=== PATIENT | female | born 1975 | race Caucasian/White ===

== ENCOUNTER 2019-04-25 20:16 | Emergency (ER) | payer OTHER ==
[2019-04-25 20:30] VITALS: O2SAT 96
[2019-04-25] MEDS ORDERED: Zithromax 250 MG TABLET PO ONE (20:37)
[2019-04-25] MEDS ORDERED: NORCO 5/325 MG PO ONE (20:38)
--- NOTE | 2019-04-25 20:38 | ERPHSYRPT ---
- History of Present Illness Time Seen by Provider: 04/25/19 20:30 Source: patient Exam Limitations: no limitations Patient Subjective Stated Complaint: pt states she has an earache and cold. states her rt ear started hurting about a week ago and she has had drainage from rt ear. had sharp stabbing pain in lt ear starting today. Triage Nursing Assessment: pt alert and oriented, answers questions approp. pt ambulatory with steady gait noted. respirations nonlabored with lungs cta. no drainaged noted from ears. Physician History: 44 y/o white female presents with bilat earaches beginning yesterday. today left earache began. pt feels as though her neck lymph nodes swollen. no cough. denies fever. denies n/v/d. pt cannot take nsaids but can take steroids Timing/Duration: gradual onset, yesterday Severity: moderate ENT Location: ear (R), ear (L) Prearrival Treatment: no prearrival treatment Modifying Factors: Improves With: nothing Associated Symptoms: ear pain (R), ear pain (L), swollen glands (bilat neck) Allergies/Adverse Reactions: ketorolac tromethamine [From Toradol] Adverse Reaction (Mild, Verified 04/25/19 20:30) Nausea NSAIDS (Non-Steroidal Anti-Inflamma Adverse Reaction (Mild, Verified 04/25/19 20 :30) Nausea Home Medications: Pregabalin [Lyrica] 75 mg PO BID 02/18/15 [History] Hx Tetanus, Diphtheria Vaccination/Date Given: Yes Hx Influenza Vaccination/Date Given: Yes Hx Pneumococcal Vaccination/Date Given: Yes Immunizations Up to Date: Yes - Review of Systems Constitutional: No Symptoms Eyes: No Symptoms Ears, Nose, & Throat: Ear Pain (bilat r > l) Respiratory: No Symptoms Cardiac: No Symptoms Abdominal/Gastrointestinal: No Symptoms Genitourinary Symptoms: No Symptoms Musculoskeletal: No Symptoms Skin: No Symptoms Neurological: No Symptoms Psychological: No Symptoms Endocrine: No Symptoms Hematologic/Lymphatic: No Symptoms Immunological/Allergic: No Symptoms All Other Systems: Reviewed and Negative - Past Medical History Pertinent Past Medical History: Yes Neurological History: No Pertinent History ENT History: No Pertinent History Cardiac History: No Pertinent History Respiratory History: Pneumonia Endocrine Medical History: No Pertinent History Musculoskeletal History: No Pertinent History GI Medical History: Ulcer History: No Pertinent History Psycho-Social History: No Pertinent History Female Reproductive Disorders: No Pertinent History - Past Surgical History Past Surgical History: Yes Neuro Surgical History: No Pertinent History Cardiac: No Pertinent History Respiratory: No Pertinent History Gastrointestinal: Hernia Repair Genitourinary: No Pertinent History Musculoskeletal: No Pertinent History Female Surgical History: Tubal Ligation Other Surgical History: lt oopherectomy - Social History Smoking Status: Current every day smoker How long have you smoked: 18 yrs Exposure to second hand smoke: Yes Drug Use: none Patient Lives Alone: No - Female History Hx Last Menstrual Period: 2 weeks Hx Now: No - Nursing Vital Signs Nursing Vital Signs: Initial Vital Signs Temperature 98.6 F 04/25/19 20:22 Pulse Rate 100 H 04/25/19 20:22 Respiratory Rate 20 04/25/19 20:22 Blood Pressure 153/103 04/25/19 20:22 O2 Sat by Pulse Oximetry 96 04/25/19 20:22 Pain Scale Pain Intensity 10 - Physical Exam General Appearance: no apparent distress, alert, anxiety Eye Exam: bilateral eye: normal inspection, PERRL, EOMI Ear Exam: bilateral ear: auricle normal, canal normal, TM red Nasal Exam: normal inspection Throat Exam: normal, pharynx normal, No dental tenderness, No tongue swollen, No uvula swelling, No voice changes Neck Exam: normal inspection, non-tender, supple, full range of motion, trachea midline, No lymphadenopathy (R), No lymphadenopathy (L) Cardiovascular/Respiratory Exam: chest non-tender, normal breath sounds, regular rate/rhythm, heart sounds normal, no respiratory distress Abdominal Exam: non-tender Neurologic Exam: alert, oriented x 3, cooperative, fairing man II-XII nml as tested Skin Exam: normal color, warm, dry SpO2 Interpretation: normal SpO2: 96 O2 Delivery: Room Air Ordered Tests: Medication Summary Generic Name Dose Route Start Last Admin Trade Name Freq PRN Reason Stop Dose Admin Prednisone 20 mg 04/26/19 20:38 04/25/19 20:46 Deltasone 20 Mg PO 04/26/19 20:39 20 mg STAT ONE Administration Discontinued Medications Generic Name Dose Route Start Last Admin Trade Name Freq PRN Reason Stop Dose Admin Hydrocodone Bitart/Acetaminophen 1 tab 04/25/19 20:38 04/25/19 20:47 [place] 5/325 Mg PO 04/25/19 20:39 1 tab STAT ONE Administration Hydrocodone Bitart/Acetaminophen Confirm 04/25/19 20:45 [place] 5/325 Mg Administered 04/25/19 20:46 Dose 1 tab .ROUTE .STK-MED ONE Azithromycin 500 mg 04/25/19 20:37 04/25/19 20:47 Zithromax 250 Mg Tablet PO 04/25/19 20:38 500 mg STAT ONE Administration Azithromycin Confirm 04/25/19 20:45 Zithromax 250 Mg Tablet Administered 04/25/19 20:46 Dose 500 mg .ROUTE .STK-MED ONE Prednisone Confirm 04/25/19 20:45 Deltasone 20 Mg Administered 04/25/19 20:46 Dose 20 mg .ROUTE .STK-MED ONE - Progress Progress: unchanged Counseled pt/family regarding: diagnosis, need for follow-up - Departure Departure Disposition: Home Clinical Impression: Bilateral otitis media Condition: Stable Critical Care Time: No Additional Instructions: drink plenty of fluids. follow up with primary doctor for further management Prescriptions: Hydrocodone/APAP 5/325 [[place] 5/325 mg] 1 each PO Q8H PRN PRN #6 tablet MDD 3 PRN Reason: Pain Azithromycin 250 mg [Zithromax 250 MG TABLET] 250 mg PO DAILY #4 tablet Prednisone 10 mg [Deltasone 10 mg] 10 mg PO BID #6 tablet
[2019-04-25] MEDS ORDERED: NORCO 5/325 MG ONE (20:45)
[2019-04-25] MEDS ORDERED: DELTASONE 20 MG ONE (20:45)
[2019-04-25] MEDS ORDERED: Zithromax 250 MG TABLET ONE (20:45)
[2019-04-25 21:22] VITALS: BP 135/88; PULSE 78
[2019-04-26] MEDS ORDERED: DELTASONE 20 MG PO ONE (20:38)
== END 2019-04-25 21:41 | disposition home or self-care (01) ==
LOC: ED 20:16
DX: H66.93 Otitis media, unspecified, bilateral (principal)
CPT/HCPCS: 99283; A9270-GY

== ENCOUNTER 2019-10-12 17:15 | Observation (INO) | payer MEDICAID, OTHER ==
[2019-10-12] MEDS ORDERED: Pepcid 20 MG VIAL IV ONE ×2 (17:22→17:31)
[2019-10-12] MEDS ORDERED: PROTONIX 40 MG IV IV ONE ×2 (17:22→17:31)
[2019-10-12] MEDS ORDERED: Sodium Chloride 0.9% 1000 ML 1,000 ML IV STA (17:22)
[2019-10-12 17:40] LABS: Absolute Neutrophil Ct (ANC) 15.19 (1.4-6.9); BASOPHIL % 0.1 % (0.0-0.4); Basophil (Absolute #) 0.02 (0-0.4); Eosinophil (Absolute #) 0 (0-0.5); Hematocrit 48.9 % (35-47); Hemoglobin 16.2 gm/dl (12.0-16.0); Lymphocyte (Absolute #) 1.17 (1.0-4.6); Lymphocytes % 6.9 % (24.0-44.0); Mean Cell Volume 87.9 fl (78-100); Mean Corpuscular Hemoglobin 29.1 pg (26-32); Mean Corpuscular Hgb Concent. 33.1 g/dl (32-36); Mean Platelet Volume 9.8 fl (7.5-11.0); Monocyte (Absolute #) 0.69 (0.0-1.3); Platelet Count 380 K/mm3 (150-450); Red Blood Count 5.56 M/mm3 (4.1-5.4); Red Cell Distribution Width 15.7 % (11.5-14.0); White Blood Count 17.1 K/mm3 (4.0-10.5)
--- NOTE | 2019-10-12 17:41 | ERPHSYRPT ---
- History of Present Illness Time Seen by Provider: 10/12/19 17:38 Historian: patient, EMS Exam Limitations: no limitations Patient Subjective Stated Complaint: pt here via ambulance for abd pain to left side,with nasuea and vomiting, since yesterday. was given pain meds and zofran per ems Triage Nursing Assessment: pt alert, arrived per ambulance, resp easy, skin w/d/ p. abd soft, with bs, moves all ext well Physician History: abd pain to left side,with nasuea and vomiting, since yesterday. c/o fever, no chills, Abdominal pain started yesterday. c/o constipation. pain in suprapubic and aide umbilical area Timing/Duration: yesterday Activities at Onset: none Quality: cramping Abdominal Pain Onset Location: periumbilical, suprapubic Pain Radiation: no radiation Severity of Pain-Max: moderate Severity of Pain-Current: moderate Modifying Factors: Improves With: nothing Associated Symptoms: fever/chills, loss of appetite, nausea, vomiting Allergies/Adverse Reactions: ketorolac tromethamine [From Toradol] Adverse Reaction (Mild, Verified 10/12/19 17:27) Nausea NSAIDS (Non-Steroidal Anti-Inflamma Adverse Reaction (Mild, Verified 10/12/19 17 :27) Nausea Home Medications: No Reportable Medications [No Reported Medications] 10/12/19 [History] Hx Tetanus, Diphtheria Vaccination/Date Given: No Hx Influenza Vaccination/Date Given: Yes Hx Pneumococcal Vaccination/Date Given: No Immunizations Up to Date: Yes - Review of Systems Constitutional: Fever, No Chills Eyes: No Symptoms Ears, Nose, & Throat: No Symptoms Respiratory: No Cough, No Dyspnea Cardiac: No Chest Pain, No Edema, No Syncope Abdominal/Gastrointestinal: Abdominal Pain, Nausea, Vomiting, Constipation, Appetite Changes, No Diarrhea Genitourinary Symptoms: No Dysuria Musculoskeletal: No Back Pain, No Neck Pain Skin: No Rash Neurological: No Dizziness, No Focal Weakness, No Sensory Changes Psychological: No Symptoms Endocrine: No Symptoms All Other Systems: Reviewed and Negative - Past Medical History Pertinent Past Medical History: No Neurological History: No Pertinent History ENT History: No Pertinent History Cardiac History: No Pertinent History Respiratory History: Pneumonia Endocrine Medical History: No Pertinent History Musculoskeletal History: No Pertinent History GI Medical History: Ulcer History: No Pertinent History Psycho-Social History: No Pertinent History Female Reproductive Disorders: No Pertinent History - Past Surgical History Past Surgical History: Yes Neuro Surgical History: No Pertinent History Cardiac: No Pertinent History Respiratory: No Pertinent History Gastrointestinal: Hernia Repair Genitourinary: No Pertinent History Musculoskeletal: No Pertinent History Female Surgical History: Other Other Surgical History: right overy removed - Social History Smoking Status: Current every day smoker How long have you smoked: 18 yrs Exposure to second hand smoke: Yes Drug Use: none Patient Lives Alone: No - Female History Hx Last Menstrual Period: 2 weeks ago Hx Now: No - Nursing Vital Signs Nursing Vital Signs: Initial Vital Signs Temperature 97.3 F 10/12/19 17:17 Pulse Rate 81 10/12/19 17:17 Respiratory Rate 18 10/12/19 17:17 Blood Pressure 150/104 10/12/19 17:17 O2 Sat by Pulse Oximetry 95 10/12/19 17:17 Pain Scale Pain Intensity 5 - Physical Exam General Appearance: no apparent distress, alert Eye Exam: PERRL/EOMI, eyes nml inspection Ears, Nose, Throat Exam: normal ENT inspection, pharynx normal, moist mucous membranes Neck Exam: normal inspection, non-tender, supple, full range of motion Respiratory Exam: normal breath sounds, lungs clear, No respiratory distress Cardiovascular Exam: regular rate/rhythm, normal heart sounds Gastrointestinal/Abdomen Exam: tenderness (periumbilical area), No mass Back Exam: normal inspection, normal range of motion, No CVA tenderness, No vertebral tenderness Extremity Exam: normal inspection, normal range of motion, pelvis stable Neurologic Exam: alert, oriented x 3, cooperative, normal mood/affect, nml cerebellar function, sensation nml, No motor deficits Skin Exam: normal color, warm, dry SpO2: 95 - Course Nursing assessment & vital signs reviewed: Yes - CT Exams Abdomen/Pelvis CT Interpretation: Tele-radiologist Report (right umbilical incarcerated hernia with small bowel obstruction) Ordered Tests: Active Orders 24 hr Category Date Time Status ABDOMEN AND PELVIS W/0 CONTRAS [CT] Stat Exams 10/12/19 17:23 Taken AMYLASE Stat Lab 10/12/19 17:37 Completed CBC W DIFF Stat Lab 10/12/19 17:37 Completed CMP Stat Lab 10/12/19 17:37 Completed HCG,QUALITATIVE URINE Stat Lab 10/12/19 Uncollected LIPASE Stat Lab 10/12/19 17:37 Completed Lactic Acid Stat Lab 10/12/19 17:35 Completed UA W/RFX UR CULTURE Stat Lab 10/12/19 17:22 Uncollected Urine Triage Profile Stat Lab 10/12/19 17:23 Uncollected Medication Summary Discontinued Medications Generic Name Dose Route Start Last Admin Trade Name Freq PRN Reason Stop Dose Admin Famotidine 20 mg 10/12/19 17:22 10/12/19 17:35 Pepcid 20 Mg Vial IV 10/12/19 17:23 20 mg STAT ONE Administration Famotidine Confirm 10/12/19 17:31 Pepcid 20 Mg Vial Administered 10/12/19 17:32 Dose 20 mg IV .STK-MED ONE Sodium Chloride 1,000 mls @ 999 mls/hr 10/12/19 17:22 10/12/19 17:47 Sodium Chloride 0.9% 1000 Ml IV 10/12/19 18:22 999 mls/hr .Q1H1M STA Administration Sodium Chloride Confirm 10/12/19 17:47 Sodium Chloride 0.9% 1000 Ml Administered 10/12/19 17:48 Dose 1,000 mls @ ud .ROUTE .STK-MED ONE Ceftriaxone Sodium/Dextrose 1 g in 50 mls @ 100 mls/hr 10/12/19 18:01 18:27 Rocephin 1 Gm-D5w 50 Ml Bag IV 10/12/19 18:30 200 ml/hr STAT STA 200 mls/hr Administration Ceftriaxone Sodium/Dextrose Confirm 10/12/19 18:24 Rocephin 1 Gm-D5w 50 Ml Bag Administered 10/12/19 18:25 Dose 1 g in 50 mls @ ud IV .STK-MED ONE Pantoprazole Sodium 40 mg 10/12/19 17:22 10/12/19 17:35 Protonix 40 Mg Iv IV 10/12/19 17:23 40 mg STAT ONE Administration Pantoprazole Sodium Confirm 10/12/19 17:31 Protonix 40 Mg Iv Administered 10/12/19 17:32 Dose 40 mg IV .STK-MED ONE Lab/Rad Data: Laboratory Result Diagrams 10/12/19 17:37 10/12/19 17:37 Laboratory Results 10/12/19 10/12/19 10/12/19 Range/Units 17:37 17:37 17:35 WBC 17.1 H (4.0-10.5) K/mm3 RBC 5.56 H (4.1-5.4) M/mm3 Hgb 16.2 H (12.0-16.0) gm/dl Hct 48.9 H (35-47) % MCV 87.9 (78-100) fl MCH 29.1 (26-32) pg MCHC 33.1 (32-36) g/dl RDW 15.7 H (11.5-14.0) % Plt Count 380 (150-450) K/mm3 MPV 9.8 (7.5-11.0) fl Gran % 89.0 H (36.0-66.0) % Eos # (Auto) 0 (0-0.5) Absolute Lymphs (auto) 1.17 (1.0-4.6) Absolute Monos (auto) 0.69 (0.0-1.3) Lymphocytes % 6.9 L (24.0-44.0) % Monocytes % 4.0 (0.0-12.0) % Eosinophils % 0.0 (0.00-5.0) % Basophils % 0.1 (0.0-0.4) % Absolute Granulocytes 15.19 H (1.4-6.9) Basophils # 0.02 (0-0.4) Sodium 138 (137-145) mmol/L Potassium 4.2 (3.5-5.1) mmol/L Chloride 103 (98-107) mmol/L Carbon Dioxide 29 (22-30) mmol/L Anion Gap 10.5 (5-15) MEQ/L BUN 10 (7-17) mg/dL Creatinine 0.45 L (0.52-1.04) mg/dL Estimated GFR > 60.0 ML/MIN Glucose 117 H (74-106) mg/dL Lactic Acid 1.6 (0.4-2.0) Calcium 9.5 (8.4-10.2) mg/dL Total Bilirubin 0.30 (0.2-1.3) mg/dL AST 24 (14-36) U/L ALT 15 (0-35) U/L Alkaline Phosphatase 74 (38-126) U/L Serum Total Protein 7.4 (6.3-8.2) g/dL Albumin 4.0 (3.5-5.0) g/dL Amylase 36 (30-110) U/L Lipase 164 (23-300) U/L - Progress Discussed with : Steve Will see patient in: other (to operating room) Counseled pt/family regarding: lab results, diagnosis, need for follow-up, rad results - Departure Departure Disposition: Observation Clinical Impression: Small intestine obstruction, Incarcerated umbilical hernia Condition: Fair Critical Care Time: Yes Critical Care Time(excluding separately billable procedures): Critical 30-74 mins Referrals: DOCTOR,NO FAMILY [Primary Care Provider] - LUIS ALFREDO GALAN [COURTESY STAFF] -
[2019-10-12] MEDS ORDERED: Sodium Chloride 0.9% 1000 ML 0 ML ONE (17:47)
[2019-10-12 17:54] LABS: ALKALINE PHOSPHATASE 74 U/L (38-126); AMYLASE 36 U/L (30-110); ANION GAP 10.5 MEQ/L (5-15); BLOOD UREA NITROGEN 10 mg/dL (7-17); CHLORIDE 103 mmol/L (98-107); Calcium 9.5 mg/dL (8.4-10.2); Carbon Dioxide 29 mmol/L (22-30); Creatinine 1 0.45 mg/dL (0.52-1.04); Glucose 117 mg/dL (74-106); LIPASE 164 U/L (23-300); Potassium 4.2 mmol/L (3.5-5.1); SGOT/AST 24 U/L (14-36); SGPT/ALT 15 U/L (0-35); SODIUM 138 mmol/L (137-145); Total Protein 7.4 g/dL (6.3-8.2)
[2019-10-12] MEDS ORDERED: ROCEPHIN 1 Gm-D5w 50 ml Bag** 1 G/50 ML IVPB IV STA (18:01)
[2019-10-12] MEDS ORDERED: ROCEPHIN 1 Gm-D5w 50 ml Bag** 1 G/50 ML IVPB IV ONE (18:24)
[2019-10-12] MEDS ORDERED: SUBLIMAZE 100 MCG/2 ML IV ONE (18:49)
[2019-10-12] MEDS ORDERED: SUBLIMAZE 100 MCG/2 ML ONE ×3 (18:50→22:03)
[2019-10-12] MEDS ORDERED: Lactated Ringers 2,000 ML IV ONE (19:21)
[2019-10-12] MEDS ORDERED: Sensorcaine 0.25% 10 ML ONE (19:21)
[2019-10-12] MEDS ORDERED: Quelicin Fliptop 200 MG/10 ML ONE (19:26)
[2019-10-12] MEDS ORDERED: Zemuron 100 MG/10 ML ONE ×2 (19:26→21:05)
[2019-10-12] MEDS ORDERED: SUBLIMAZE 250 MCG/5 ML ONE (19:26)
[2019-10-12] MEDS ORDERED: Versed 2 MG/2 ML Injection ONE (19:26)
[2019-10-12] MEDS ORDERED: DIPRIVAN 200 MG/20 ML IV ONE (19:26)
[2019-10-12] MEDS ORDERED: BRIDION 200MG/2ML IV ONE (19:39)
[2019-10-12] MEDS ORDERED: Zofran 4 MG/2 ML VIAL ONE (19:39)
[2019-10-12] MEDS ORDERED: Decadron 4 MG INJ ONE (19:39)
[2019-10-12] MEDS ORDERED: Lactated Ringers 1,000 ML IV ONE (19:46)
[2019-10-12] MEDS ORDERED: CEFAZOLIN 2 GM-D5W BAG** 2 GM/50 ML ML IV ONE (19:51)
[2019-10-12] MEDS ORDERED: Marcaine 0.5%/Epinephrine 10 ML ONE (20:54)
[2019-10-12] MEDS ORDERED: MARCAINE 0.5%-EPI 1:200,000 VL IJ ONE (20:54)
--- NOTE | 2019-10-12 21:18 | XRAY ---
Indication: Abdomen pain, nausea, and vomiting. Multiple contiguous axial images obtained through the abdomen and pelvis without contrast as ordered. Comparison: CT renal stone study October 13, 2011. Lung bases again demonstrates bilateral fibrosis/scarring. No infiltrate or effusion. Heart is not enlarged. New moderate sized hiatal hernia with partial intrathoracic stomach. Noncontrasted stomach unremarkable. New 3 cm right periumbilical ventral hernia defect with herniated knuckle of small bowel appearing mildly fluid distended concerning for incarceration. The more proximal small bowel loops are mildly fluid distended with fluid leveling favoring partial obstruction. Normal distal colonic bowel gas with mild scattered colonic fecal debris and again mild scattered descending/sigmoid diverticulosis. New small abdomen and pelvic ascites. No walled off fluid collection or free air. Remaining liver, gallbladder, pancreas, spleen, adrenal glands, kidneys, ureters, uterus, and aorta appear unremarkable for noncontrast exam. Osseous structures intact. Impression: 1. New right periumbilical ventral hernia with herniated knuckle of small bowel appearing incarcerated. Proximal small bowel loops are abnormally fluid distended with fluid leveling favoring partial obstruction. Small abdomen/pelvic ascites may be related. 2. New hiatal hernia with partial intrathoracic stomach. 3. Again incidental colonic diverticulosis. Comment: Preliminary interpretation was made by [facility] who reports right lower lobe nodule. Appearance is more focal fibrosis and unchanged with respect to June 05, 2011 and favored to be benign.
[2019-10-12] MEDS ORDERED: BREVIBLOC 100 MG/10 ML IV ONE (21:36)
[2019-10-12] MEDS ORDERED: MORPHINE SULFATE 10 MG/ML ONE (22:16)
[2019-10-12] MEDS ORDERED: Zofran 4 MG/2 ML VIAL IV PRN (23:28)
[2019-10-12 23:49] LABS: Appearance SLIGHTLY CLOUDY (CLEAR); Bacteria RARE /HPF (NEGATIVE); Bilirubin NEGATIVE (NEGATIVE); Blood NEGATIVE Ery/ul (0-5); Epithelial Cells RARE /HPF (FEW); Glucose NEGATIVE (NEGATIVE); Ketones TRACE (NEGATIVE); Leukocyte Esterase NEGATIVE (NEGATIVE); Mucus SLIGHT /HPF (NEGATIVE); Nitrite NEGATIVE (NEGATIVE); Protein,Urine Dip 100 (Negative); Specific Gravity 1.041 (1.005-1.025); Urobilinogen NEGATIVE mg/dL (0-1)
[2019-10-12] MEDS: MORPHINE SULFATE 4 MG INJ IV PRN (23:58)
[2019-10-13] MEDS: MORPHINE SULFATE 4 MG INJ IV PRN ×6 (01:05→12:23)
[2019-10-13] MEDS: D5W/0.45NS W/ 20mEq KCl 1000 ML 1,000 ML IV SCH ×3 (01:05→19:29)
[2019-10-13 06:12] LABS: Hematocrit 40.9 % (35-47); Hemoglobin 13.4 gm/dl (12.0-16.0); Mean Cell Volume 89.7 fl (78-100); Mean Corpuscular Hemoglobin 29.4 pg (26-32); Mean Corpuscular Hgb Concent. 32.8 g/dl (32-36); Mean Platelet Volume 10.4 fl (7.5-11.0); Platelet Count 347 K/mm3 (150-450); Red Blood Count 4.56 M/mm3 (4.1-5.4); Red Cell Distribution Width 15.8 % (11.5-14.0); White Blood Count 16.7 K/mm3 (4.0-10.5)
[2019-10-13] MEDS: MORPHINE SULFATE 2 MG INJ IV PRN ×2 (06:27→08:09)
[2019-10-13] MEDS: ENOXAPARIN SODIUM SQ SCH (09:55)
[2019-10-13] MEDS ORDERED: PHARMACY DOSING REQUEST MC ONE (12:58)
[2019-10-13] MEDS ORDERED: DILAUDID 2 MG INJECTION IV STA (14:04)
[2019-10-13] MEDS: DILAUDID 2 MG INJECTION IV PRN ×4 (16:21→22:38)
[2019-10-13] MEDS ORDERED: NORCO 5/325 MG ONE (19:48)
[2019-10-13] MEDS: NORCO 5/325 MG PO PRN (19:55)
[2019-10-14] MEDS: DILAUDID 2 MG INJECTION IV PRN ×11 (00:40→23:31)
[2019-10-14] MEDS: NORCO 5/325 MG PO PRN ×3 (01:41→22:40)
[2019-10-14] MEDS: D5W/0.45NS W/ 20mEq KCl 1000 ML 1,000 ML IV SCH ×3 (03:36→21:30)
[2019-10-14 04:29] LABS: BASOPHIL % 0.2 % (0.0-0.4); Basophil (Absolute #) 0.02 (0-0.4); Eosinophil % 1.1 % (0.00-5.0); Eosinophil (Absolute #) 0.12 (0-0.5); Hematocrit 38.5 % (35-47); Hemoglobin 12.2 gm/dl (12.0-16.0); Lymphocyte (Absolute #) 3.09 (1.0-4.6); Lymphocytes % 27.5 % (24.0-44.0); Mean Cell Volume 91.2 fl (78-100); Mean Corpuscular Hemoglobin 28.9 pg (26-32); Mean Corpuscular Hgb Concent. 31.7 g/dl (32-36); Mean Platelet Volume 9.7 fl (7.5-11.0); Monocyte (Absolute #) 1.21 (0.0-1.3); Monocytes % 10.8 % (0.0-12.0); Neutrophil % 60.4 % (36.0-66.0); Platelet Count 305 K/mm3 (150-450); Red Blood Count 4.22 M/mm3 (4.1-5.4); White Blood Count 11.2 K/mm3 (4.0-10.5)
[2019-10-14] MEDS: ENOXAPARIN SODIUM SQ SCH (09:20)
--- NOTE | 2019-10-14 14:21 | HP ---
HISTORY OF PRESENT ILLNESS: A 44 year-old patient who is overweight. The emergency room physician told me she has not had any surgeries before but apparently she had hernia repair by Dr. Ricketts in the past and also had an ovary removed in the past. Denied any chronic illnesses. She is a smoker. PAST MEDICAL HISTORY: Denied any chronic illnesses. PAST SURGICAL HISTORY: Right ovary removed in the past. MEDICATIONS: None on a regular basis. ALLERGIES: TORADOL, NSAIDS ACCORDING TO PATIENT. FAMILY HISTORY: Negative in regards to this problem. SOCIAL HISTORY: She is a smoker, said she smokes less than a pack per day. No alcohol abuse. LAB DATA AND TESTS: Liver function test and lipase were okay. Lactic acid normal. White count 15, hemoglobin 16.3, PLT 280,000. CT scan showed ventral hernia, loop of bowel stuck in it. They thought it was obstructing hernia. REVIEW OF SYSTEMS: Fourteen systems reviewed per admission assessment. Abdominal pain, nausea, vomiting and constipation for about three days. No chest pain or palpitations other systems negative or noncontributory as above and per preadmission questionnaire. PHYSICAL EXAMINATION: She is afebrile. Blood pressure 150/104, pulse 81. HEENT: Sclerae nonicteric. NECK: No JVD. CHEST: Equal excursion, nonlabored breathing. CVS: Regular rate and rhythm. ABDOMEN: She is overweight. She does have some tenderness periumbilical area. She has incisions upper abdomen from prior hernia repair. She has a lower midline incision from past oophorectomy, according to the patient. EXTREMITIES: No cyanosis. NEURO: Alert, moving extremities symmetrically. IMPRESSION: Incarcerated hernia with small bowel obstruction needs repair, this is an emergent situation, will proceed with open fashion. Risk and benefits were explained in detail but not limited to, including the fact she would have incision. Risk of bleeding and/or infection. Risk of hematoma or seroma formation. Risk of mesh infection possibly requiring removal. Risk of adhesion or scar formation, or obstruction down the road. Possibility if the bowel appears to be nonviable may require resection, reanastomosis accomplished. Risk of anastomotic complications, stenosis, fistula formation or abscess possibly requiring other procedure, ongoing morbidity. Risk of anesthesia, deep venous thrombosis, pulmonary embolism, pneumonia. Risk of cardiopulmonary event given her smoking as well as risk of anesthesia as well as hernia recurrence but not limited to. She understands depending on what we find and whether we need to resect the bowel will admit her to the hospital. If no need for bowel resection then likely will needing pain control. She is agreeable, will proceed with repair of incarcerated ventral hernia possible mesh with possible bowel resection.
--- NOTE | 2019-10-14 14:45 | OP ---
SURGERY DATE/TIME: 10/12/20192003 PREOPERATIVE DIAGNOSIS: Incarcerated recurrent ventral hernia with small bowel obstruction. POSTOPERATIVE DIAGNOSIS: Incarcerated recurrent ventral hernia with small bowel obstruction. PROCEDURE: Repair of recurrent incarcerated ventral hernia with mesh with release of small bowel obstruction. SURGEON: Dr. Hakeem Ochoa. ANESTHESIA: General. ESTIMATED BLOOD LOSS: Minimal. INDICATIONS: As noted above. Risks and benefits explained in detail and not limited to and consent obtained. DESCRIPTION OF PROCEDURE AND FINDINGS: After waiting some time for the patient to get to the OR, general anesthesia induced. Abdomen prepped and draped in usual sterile fashion. After official time out and no disagreement with planned procedure, a midline incision made from supraumbilical extending to infraumbilical area. Dissection carried down through the patient's old incisional area down to the level of the hernia. Hernia sac was opened. The fascial bridge released. Incarcerated small bowel obstruction had been released with releasing adhesions. Small bowel itself appeared to be viable. It did not seem a need for small bowel resection at this time. The bowel carefully inspected. It had a lot of gas and fluid in it. Serous ascites carefully suctioned out. Some omental adhesions were carefully lysed allowing the rectus fascia to be freed circumferentially around. Once this accomplished I felt the patient would benefit from mesh repair. Gloves were changed. Good hemostasis noted. Size [address] mesh was used to secure 1 cm apart around the edges tension-free with 0 Prolene. Once this was accomplished the fascia was closed over the top of the mesh. There is second layer repair with running looped 0 PDS. Subcu irrigated out. Given the large amount of adipose tissue, temporary MARTIN placed subcu out through inferior stab wound, secured with PDS suture and placed to bulb suction. The patient had secondary unrelated umbilical area hernia that was reduced and repair in a day or two. It was unrelated to the incarcerated bowel obstructed hernia. Subcu closed with 3-0 Vicryl. Skin closed with 4-0 Vicryl. Steri-Strips and sterile dressing applied. Anesthesia planned tap blocks. There were no immediate complications. I will see if there is family available to discuss the findings with otherwise she is to stay for pain control. Consult her medical doctor for medical management as needed.
[2019-10-15] MEDS: DILAUDID 2 MG INJECTION IV PRN ×9 (01:32→22:36)
[2019-10-15] MEDS: D5W/0.45NS W/ 20mEq KCl 1000 ML 1,000 ML IV SCH ×3 (05:32→21:54)
[2019-10-15] MEDS: ENOXAPARIN SODIUM SQ SCH (08:59)
[2019-10-15] MEDS ORDERED: HUMULIN R SQ PRN (15:48)
[2019-10-15] MEDS ORDERED: HUMALOG SQ PRN (15:48)
[2019-10-16] MEDS: DILAUDID 2 MG INJECTION IV PRN ×4 (00:36→12:20)
[2019-10-16] MEDS: NORCO 5/325 MG PO PRN ×2 (03:37→14:28)
[2019-10-16] MEDS: D5W/0.45NS W/ 20mEq KCl 1000 ML 1,000 ML IV SCH (06:52)
[2019-10-16] MEDS: ENOXAPARIN SODIUM SQ SCH (09:02)
[2019-10-16 12:33] VITALS: BP 156/88; PULSE 87; O2SAT 99
== END 2019-10-16 17:35 | disposition home or self-care (01) ==
LOC: ED 17:15 → MED SURG 23:01
PROVIDERS: ADMIT Surgery; ATTEND Surgery
DX: K43.0 Incisional hernia with obstruction, without gangrene (principal); K56.609 Unspecified intestinal obstruction, unspecified as to partial versus complete obstruction; K56.50 Intestinal adhesions [bands], unspecified as to partial versus complete obstruction
CPT/HCPCS: 36415; 44005; 49566; 49568; 64488; 74176; 76937; 76942; 80053; 81001; 82150; 83605; 83690; 85025; 85027; 87086; 93268; 94760; 94762; 96360; 96365; 96374; 96375; 99291; G0378; 99140; 99284; J0330; J0690; J0696; J1100; J1170; J1650; J2250; J2270; J2405; J2704; J3010; L0625; A9270-GY

== ENCOUNTER 2020-10-14 10:51 | Inpatient (IN) | payer MEDICAID, OTHER ==
[2020-10-14] MEDS ORDERED: Hydromorphone 1 mg/ml Injection IV ONE ×2 (11:03→13:01)
[2020-10-14] MEDS ORDERED: PROTONIX 40 MG IV IV ONE ×2 (11:03→11:08)
[2020-10-14] MEDS ORDERED: Zofran 4 MG/2 ML VIAL IV ONE ×2 (11:03→12:55)
[2020-10-14] MEDS ORDERED: Sodium Chloride 0.9% 1000 ML 1,000 ML IV STA ×2 (11:03→12:16)
--- NOTE | 2020-10-14 11:03 | ERPHSYRPT ---
- History of Present Illness Time Seen by Provider: 10/14/20 11:03 Historian: patient, EMS Exam Limitations: no limitations Patient Subjective Stated Complaint: pt here for abd pain with nasuea and vomiing since monday,states feels like cramping, pt has hx of bowel obstruction a year ago Triage Nursing Assessment: pt alert, arrrived per ambulance, resp easy, skin w/d/p.abd tendert to touh, no edema noted Physician History: This is a 45-year-old white female who has had abdominal surgeries in the past for repairs umbilical hernia and one surgery in the past for small bowel obstruction. Patient states that she is having abdominal distention with abdominal pain and several episodes of vomiting that have been present for 2 days. She is not passing flatus. She has generalized abdominal cramping. She began not feeling well on Monday prior to this evaluation but did not start vomiting until Monday prior to this evaluation. Patient denies chest pain and she denies shortness of breath. Patient states that her general surgeon was Dr. Kay Timing/Duration: day(s) (2) Activities at Onset: none Quality: aching, cramping Abdominal Pain Onset Location: generalized abdomen Pain Radiation: no radiation Severity of Pain-Max: moderate Severity of Pain-Current: moderate Modifying Factors: Improves With: vomiting Associated Symptoms: vomiting Previous symptoms: same symptoms as today Allergies/Adverse Reactions: tramadol [From Ultram] Allergy (Intermediate, Verified 10/14/20 11:00) Hives Vomiting ketorolac tromethamine [From Toradol] Adverse Reaction (Mild, Verified 10/14/20 11:00) Nausea NSAIDS (Non-Steroidal Anti-Inflamma Adverse Reaction (Mild, Verified 10/14/20 11:00) Nausea Home Medications: No Reportable Medications [No Reported Medications] 10/12/19 [History] Hx Tetanus, Diphtheria Vaccination/Date Given: No Hx Influenza Vaccination/Date Given: No Hx Pneumococcal Vaccination/Date Given: No Immunizations Up to Date: Yes Travel Risk - International Travel Have you traveled outside of the country in past 3 weeks: No - Coronavirus Screening Are you exhibiting any of the following symptoms?: No Symptoms: Vomiting/Diarrhea Close contact with a COVID-19 positive Pt in past 14-21 Days: No - Review of Systems Constitutional: No Symptoms Eyes: No Symptoms Ears, Nose, & Throat: No Symptoms Respiratory: No Symptoms Cardiac: No Symptoms Abdominal/Gastrointestinal: Abdominal Pain, Nausea, Vomiting, No Diarrhea Genitourinary Symptoms: No Symptoms Musculoskeletal: No Symptoms Skin: No Symptoms Neurological: No Symptoms Psychological: No Symptoms Endocrine: No Symptoms Hematologic/Lymphatic: No Symptoms Immunological/Allergic: No Symptoms All Other Systems: Reviewed and Negative - Past Medical History Pertinent Past Medical History: No Neurological History: No Pertinent History ENT History: No Pertinent History Cardiac History: No Pertinent History Respiratory History: Pneumonia Endocrine Medical History: No Pertinent History Musculoskeletal History: Fibromyalgia GI Medical History: Ulcer History: No Pertinent History Psycho-Social History: No Pertinent History Female Reproductive Disorders: No Pertinent History Other Medical History: hx of bowel obs - Past Surgical History Past Surgical History: Yes Neuro Surgical History: No Pertinent History Cardiac: No Pertinent History Respiratory: No Pertinent History Gastrointestinal: Hernia Repair Genitourinary: No Pertinent History Musculoskeletal: No Pertinent History Female Surgical History: Tubal Ligation, Other Other Surgical History: left ovary and tube removed - Social History Smoking Status: Former smoker How long have you smoked: 30 years Exposure to second hand smoke: Yes Drug Use: none Patient Lives Alone: No - Female History Hx Last Menstrual Period: now Hx Now: No - Nursing Vital Signs Nursing Vital Signs: Initial Vital Signs Pulse Rate 97 H 10/14/20 10:52 Respiratory Rate 22 10/14/20 10:52 Blood Pressure 166/65 10/14/20 10:52 O2 Sat by Pulse Oximetry 97 10/14/20 10:52 Pain Scale Pain Intensity 7 - Physical Exam General Appearance: mild distress, alert, anxiety Eye Exam: PERRL/EOMI, eyes nml inspection Ears, Nose, Throat Exam: normal ENT inspection, moist mucous membranes Neck Exam: normal inspection, non-tender, supple, full range of motion Respiratory Exam: normal breath sounds, lungs clear, airway intact, No chest tenderness, No respiratory distress Cardiovascular Exam: regular rate/rhythm, normal heart sounds, normal peripheral pulses Gastrointestinal/Abdomen Exam: soft, normal bowel sounds, tenderness, distention, guarding Pelvic Exam: not done Rectal Exam: not done Back Exam: normal inspection, normal range of motion, No CVA tenderness, No vertebral tenderness Extremity Exam: normal inspection, normal range of motion, pelvis stable Neurologic Exam: alert, oriented x 3, cooperative, 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 as tested, normal mood/affect, nml cerebellar function, nml station & gait, sensation nml Skin Exam: normal color, warm, dry Lymphatic Exam: No adenopathy SpO2 Interpretation: normal SpO2: 97 O2 Delivery: Room Air - Course Nursing assessment & vital signs reviewed: Yes Ordered Tests: Active Orders 24 hr Category Date Time Status IV Insertion STAT Care 10/14/20 11:03 Active ABDOMEN AND PELVIS W/0 CONTRAS [CT] Stat Exams 10/14/20 11:04 Completed AMYLASE Stat Lab 10/14/20 11:03 Completed CBC W DIFF Stat Lab 10/14/20 11:03 Completed CMP Stat Lab 10/14/20 11:03 Completed CULTURE,URINE Stat Lab 10/14/20 12:03 Received LIPASE Stat Lab 10/14/20 11:03 Completed Lactic Acid Stat Lab 10/14/20 11:03 Completed Manual Differential NC Stat Lab 10/14/20 11:03 Completed UA W/RFX UR CULTURE Stat Lab 10/14/20 12:03 Completed Transfer Order Routine Transfer 10/14/20 Ordered Medication Summary Generic Name Dose Route Start Last Admin Trade Name Freq PRN Reason Stop Dose Admin Sodium Chloride 1,000 mls @ 999 mls/hr 10/14/20 12:16 10/14/20 12:19 Sodium Chloride 0.9% 1000 Ml IV 10/14/20 13:16 999 mls/hr .Q1H1M STA Administration Discontinued Medications Generic Name Dose Route Start Last Admin Trade Name Freq PRN Reason Stop Dose Admin Hydromorphone HCl 1 mg 10/14/20 11:03 10/14/20 11:07 Hydromorphone 1 Mg/Ml Injection IV 10/14/20 11:04 1 mg STAT ONE Administration Hydromorphone HCl Confirm 10/14/20 11:04 Hydromorphone 1 Mg/Ml Injection Administered 10/14/20 11:05 Dose 1 mg .ROUTE .STK-MED ONE Hydromorphone HCl 1 mg 10/14/20 13:01 Hydromorphone 1 Mg/Ml Injection IV 10/14/20 13:02 STAT ONE Sodium Chloride 1,000 mls @ 999 mls/hr 10/14/20 11:03 10/14/20 12:11 Sodium Chloride 0.9% 1000 Ml IV 10/14/20 12:03 Infused .Q1H1M STA Infusion Sodium Chloride Confirm 10/14/20 11:04 Sodium Chloride 0.9% 1000 Ml Administered 10/14/20 11:05 Dose 1,000 mls @ ud .ROUTE .STK-MED ONE Sodium Chloride Confirm 10/14/20 12:18 Sodium Chloride 0.9% 1000 Ml Administered 10/14/20 12:19 Dose 1,000 mls @ ud .ROUTE .STK-MED ONE Ondansetron HCl 4 mg 10/14/20 11:03 10/14/20 11:07 Zofran 4 Mg/2 Ml Vial IV 10/14/20 11:04 4 mg STAT ONE Administration Ondansetron HCl Confirm 10/14/20 11:04 Zofran 4 Mg/2 Ml Vial Administered 10/14/20 11:05 Dose 4 mg .ROUTE .STK-MED ONE Ondansetron HCl 4 mg 10/14/20 12:55 10/14/20 12:59 Zofran 4 Mg/2 Ml Vial IV 10/14/20 12:56 4 mg STAT ONE Administration Ondansetron HCl Confirm 10/14/20 12:58 Zofran 4 Mg/2 Ml Vial Administered 10/14/20 12:59 Dose 4 mg .ROUTE .STK-MED ONE Pantoprazole Sodium 40 mg 10/14/20 11:03 10/14/20 11:09 Protonix 40 Mg Iv IV 10/14/20 11:04 40 mg STAT ONE Administration Pantoprazole Sodium Confirm 10/14/20 11:08 Protonix 40 Mg Iv Administered 10/14/20 11:09 Dose 40 mg IV .STK-MED ONE Lab/Rad Data: Laboratory Result Diagrams 10/14/20 11:03 10/14/20 11:03 Laboratory Results 10/14/20 10/14/20 10/14/20 Range/Units 12:03 11:03 11:03 WBC (4.0-10.5) K/mm3 RBC (4.1-5.4) M/mm3 Hgb (12.0-16.0) gm/dl Hct (35-47) % MCV (78-100) fl MCH (26-32) pg MCHC (32-36) g/dl RDW (11.5-14.0) % Plt Count (150-450) K/mm3 MPV (7.5-11.0) fl Sodium 136 L (137-145) mmol/L Potassium 3.4 L (3.5-5.1) mmol/L Chloride 95 L (98-107) mmol/L Carbon Dioxide 30 (22-30) mmol/L Anion Gap 13.3 (5-15) MEQ/L BUN 10 (7-17) mg/dL Creatinine 0.59 (0.52-1.04) mg/dL Estimated GFR > 60.0 ML/MIN Glucose 128 H (74-106) mg/dL Lactic Acid 2.4 H (0.4-2.0) Calcium 9.4 (8.4-10.2) mg/dL Total Bilirubin 0.40 (0.2-1.3) mg/dL AST 34 (14-36) U/L ALT 17 (0-35) U/L Alkaline Phosphatase 73 (38-126) U/L Serum Total Protein 7.6 (6.3-8.2) g/dL Albumin 4.3 (3.5-5.0) g/dL Amylase 44 (30-110) U/L Lipase 82 (23-300) U/L Urine Color MANDI (YELLOW) Urine Appearance CLOUDY (CLEAR) Urine pH 9.0 (5-6) Ur Specific [place] 1.026 (1.005-1.025) Urine Protein >=500 (Negative) Urine Ketones NEGATIVE (NEGATIVE) Urine Blood MODERATE (0-5) Pasquale/ul Urine Nitrite NEGATIVE (NEGATIVE) Urine Bilirubin NEGATIVE (NEGATIVE) Urine Urobilinogen NEGATIVE (0-1) mg/dL Ur Leukocyte Esterase NEGATIVE (NEGATIVE) Urine WBC (Auto) 6-10 (0-5) /HPF Urine RBC (Auto) >101 (0-2) /HPF U Epithel Cells (Auto) RARE (FEW) /HPF Urine Bacteria (Auto) NONE (NEGATIVE) /HPF Urine Mucus (Auto) SLIGHT (NEGATIVE) /HPF Urine Culture Reflexed YES (NO) Urine Glucose NEGATIVE (NEGATIVE) mg/dL 10/14/20 Range/Units 11:03 WBC 13.7 H (4.0-10.5) K/mm3 RBC 5.58 H (4.1-5.4) M/mm3 Hgb 16.4 H (12.0-16.0) gm/dl Hct 49.5 H (35-47) % MCV 88.7 (78-100) fl MCH 29.4 (26-32) pg MCHC 33.1 (32-36) g/dl RDW 15.1 H (11.5-14.0) % Plt Count 356 (150-450) K/mm3 MPV 10.0 (7.5-11.0) fl Sodium (137-145) mmol/L Potassium (3.5-5.1) mmol/L Chloride (98-107) mmol/L Carbon Dioxide (22-30) mmol/L Anion Gap (5-15) MEQ/L BUN (7-17) mg/dL Creatinine (0.52-1.04) mg/dL Estimated GFR ML/MIN Glucose (74-106) mg/dL Lactic Acid (0.4-2.0) Calcium (8.4-10.2) mg/dL Total Bilirubin (0.2-1.3) mg/dL AST (14-36) U/L ALT (0-35) U/L Alkaline Phosphatase (38-126) U/L Serum Total Protein (6.3-8.2) g/dL Albumin (3.5-5.0) g/dL Amylase (30-110) U/L Lipase (23-300) U/L Urine Color (YELLOW) Urine Appearance (CLEAR) Urine pH (5-6) Ur Specific [place] (1.005-1.025) Urine Protein (Negative) Urine Ketones (NEGATIVE) Urine Blood (0-5) Pasquale/ul Urine Nitrite (NEGATIVE) Urine Bilirubin (NEGATIVE) Urine Urobilinogen (0-1) mg/dL Ur Leukocyte Esterase (NEGATIVE) Urine WBC (Auto) (0-5) /HPF Urine RBC (Auto) (0-2) /HPF U Epithel Cells (Auto) (FEW) /HPF Urine Bacteria (Auto) (NEGATIVE) /HPF Urine Mucus (Auto) (NEGATIVE) /HPF Urine Culture Reflexed (NO) Urine Glucose (NEGATIVE) mg/dL - Progress Progress: improved, pain not gone completely, re-examined Progress Note: 10/14/20 12:[address] scan of the abdomen and pelvis shows no evidence of any small bowel obstruction. There are chronic changes present. No other acute intra- abdominal or intrapelvic processes. 10/14/20 12:58 Medical decision making: This patient likely has at least ileus and possible small bowel obstruction. Even though the noncontrasted CAT scan of the abdomen and pelvis shows no acute evidence of small bowel obstruction, likely the small bowel is decompressed because of the multiple episodes of vomiting and lack of oral intake. Patient is still nauseated and still has some abdominal distention. We will admit her into the hospital. I spoke with Dr. White her primary care doctor and he agrees to admit her. We will give her pain medicine, antiemetics and intravenous fluids and will recheck labs in the morning. Likely, her admitting doctor will obtain a surgical consultation if she does not open up her bowels. Discussed with : Devin Counseled pt/family regarding: lab results, diagnosis, need for follow-up, rad results - Departure Departure Disposition: In-patient Admission Clinical Impression: Small bowel obstruction Condition: Stable Critical Care Time: No Referrals: KRISTI WHITE MD [Primary Care Provider] -
[2020-10-14] MEDS ORDERED: Sodium Chloride 0.9% 1000 ML 1,000 ML ONE ×2 (11:04→12:18)
[2020-10-14] MEDS ORDERED: Hydromorphone 1 mg/ml Injection ONE ×2 (11:04→13:06)
[2020-10-14] MEDS ORDERED: Zofran 4 MG/2 ML VIAL ONE ×2 (11:04→12:58)
[2020-10-14 11:38] LABS: Hematocrit 49.5 % (35-47); Hemoglobin 16.4 gm/dl (12.0-16.0); Mean Cell Volume 88.7 fl (78-100); Mean Corpuscular Hemoglobin 29.4 pg (26-32); Mean Corpuscular Hgb Concent. 33.1 g/dl (32-36); Platelet Count 356 K/mm3 (150-450); Red Blood Count 5.58 M/mm3 (4.1-5.4); Red Cell Distribution Width 15.1 % (11.5-14.0); White Blood Count 13.7 K/mm3 (4.0-10.5)
[2020-10-14 11:47] LABS: ALBUMIN 4.3 g/dL (3.5-5.0); ALKALINE PHOSPHATASE 73 U/L (38-126); AMYLASE 44 U/L (30-110); ANION GAP 13.3 MEQ/L (5-15); BLOOD UREA NITROGEN 10 mg/dL (7-17); CHLORIDE 95 mmol/L (98-107); Calcium 9.4 mg/dL (8.4-10.2); Carbon Dioxide 30 mmol/L (22-30); Creatinine 1 0.59 mg/dL (0.52-1.04); EST GLOMERULAR FILTRATION RATE > 60.0 ML/MIN; Glucose 128 mg/dL (74-106); LIPASE 82 U/L (23-300); Potassium 3.4 mmol/L (3.5-5.1); SGOT/AST 34 U/L (14-36); SGPT/ALT 17 U/L (0-35); SODIUM 136 mmol/L (137-145); Total Protein 7.6 g/dL (6.3-8.2)
--- NOTE | 2020-10-14 11:59 | XRAY ---
Indication: Abdomen pain, nausea, and vomiting. Multiple contiguous images obtained through the abdomen and pelvis without contrast. Comparison: October 12, 2019. Lung bases again demonstrates bilateral scattered fibrosis/scarring with tiny cystic changes. No infiltrate or effusion. Heart is not enlarged. Small hiatal hernia smaller than before. Noncontrasted stomach and bowel loops are nonobstructed. Normal appendix. There remains scattered colonic diverticulosis. No free fluid/air. Remaining liver, gallbladder, pancreas, spleen, adrenal glands, kidneys, ureters, bladder, uterus, and aorta appear unremarkable for noncontrast exam. Osseous structures intact. Previous periumbilical ventral hernia has been repaired. No new ventral or inguinal hernias. Impression: 1. Again incidental chronic lung findings, small hiatal hernia, and colonic diverticulosis. 2. Remaining CT abdomen/pelvis without contrast exam is negative.
[2020-10-14 12:15] LABS: Appearance CLOUDY (CLEAR); Bilirubin NEGATIVE (NEGATIVE); Blood MODERATE Ery/ul (0-5); Epithelial Cells RARE /HPF (FEW); Glucose NEGATIVE (NEGATIVE); Ketones NEGATIVE (NEGATIVE); Leukocyte Esterase NEGATIVE (NEGATIVE); Mucus SLIGHT /HPF (NEGATIVE); Nitrite NEGATIVE (NEGATIVE); Protein,Urine Dip >=500 (Negative); RBC >101 /HPF (0-2); Specific Gravity 1.026 (1.005-1.025); Urobilinogen NEGATIVE mg/dL (0-1)
[2020-10-14 14:12] LABS: Lymphocytes 22 % (24-44); Neutrophils 78 % (36.0-66.0); Platelet Estimate NORMAL (NORMAL); Total Cells Counted 100
[2020-10-14 14:24] LABS: INFLUENZA A NEGATIVE (NEGATIVE); INFLUENZA B NEGATIVE (NEGATIVE); RESPIRATORY SYNCTIAL VIRUS NEGATIVE (Negative)
[2020-10-14] MEDS ORDERED: FEVERALL 650 MG PR PRN (14:45)
[2020-10-14] MEDS ORDERED: Zofran 4 MG/2 ML VIAL IV PRN (14:45)
[2020-10-14] MEDS: Sodium Chloride 0.9% 1000 ML 1,000 ML IV SCH (15:38)
[2020-10-14] MEDS: Hydromorphone 1 mg/ml Injection IV PRN ×2 (17:10→21:25)
--- NOTE | 2020-10-14 18:56 | PCM.HP ---
History of Present Illness - Chief Complaint Chief Complaint: abdominal pain for 1 day History of Present Illness: is a 45 year old female.who has had abdominal surgeries in the past for repairs umbilical hernia and one surgery in the past for small bowel obstruction. Patient states that she is having abdominal distention with abdominal pain and several episodes of vomiting that have been present for 2 days. She is not passing flatus. She has generalized abdominal cramping. She began not feeling well on Monday prior to this evaluation but did not start vomiting until Monday prior to this evaluation. Patient denies chest pain and she denies shortness of breath. Patient states that her general surgeon was Dr. Kay - Review of Systems Constitutional: No Fever, No Chills Eyes: No Symptoms Ears, Nose, & Throat: No Symptoms Respiratory: No Cough, No Short Of Breath Cardiac: No Chest Pain, No Edema, No Syncope Abdominal/Gastrointestinal: Abdominal Pain, Nausea, Vomiting, No Diarrhea Genitourinary Symptoms: No Dysuria Musculoskeletal: No Back Pain, No Neck Pain Skin: No Rash Neurological: No Dizziness, No Focal Weakness, No Sensory Changes Psychological: No Symptoms Endocrine: No Symptoms Hematologic/Lymphatic: No Symptoms Immunological/Allergic: No Symptoms Medications & Allergies Home Medications: Home Medication List No Reportable Medications [No Reported Medications] 10/12/19 [History Confirmed 10/14/20] Allergies/Adverse Reactions: Allergies Allergy/AdvReac Type Severity Reaction Status Date / Time tramadol [From Ultram] Allergy Intermediate Hives Verified 10/14/20 14:54 ketorolac tromethamine AdvReac Mild Nausea Verified 10/14/20 14:54 [From Toradol] NSAIDS (Non-Steroidal AdvReac Mild Nausea Verified 10/14/20 14:54 Anti-Inflamma - Past Medical History Past Medical History: No Neurological History: No Pertinent History ENT History: No Pertinent History Cardiac History: No Pertinent History Respiratory History: Pneumonia Endocrine Medical History: No Pertinent History Musculoskelatal History: Fibromyalgia GI Medical History: Ulcer History: No Pertinent History Pyscho-Social History: No Pertinent History Reproductive Disorders: No Pertinent History Comment: 2014, OVARIAN CYST RUPTURE; 2016 MULTIPLE HERNIAS; 2019 LOWER RUPTURE HERNIA, - Female History Hx Last Menstrual Period: now Are you now?: No - Past Surgical History Past Surgical History: Yes Neuro Surgical History: No Pertinent History Cardiac History: No Pertinent History Respiratory Surgery: No Pertinent History GI Surgical History: Hernia Repair Genitourinary Surgical Hx: No Pertinent History Musculskeletal Surgical Hx: No Pertinent History Female Surgical History: Tubal Ligation, Other Other Surgical History: left ovary and tube removed 2019 BOWEL BLOCKAGE REPAIR. - Social History Smoking Status: Former smoker How long have you smoked: 30 years Exposure to second hand smoke: No Alcohol: None Drug Use: none - Physical Exam Vital Signs: Vital Signs - 24 hr Temp Pulse Resp BP Pulse Ox 10/14/20 14:45 98.1 F 71 16 142/92 96 10/14/20 14:25 58 L 16 125/85 95 10/14/20 13:13 71 16 141/70 98 10/14/20 13:06 97 10/14/20 12:04 56 L 16 160/84 93 L 10/14/20 11:41 60 16 167/75 98 10/14/20 10:52 97 H 22 166/65 97 General Appearance: no apparent distress, alert Neurologic Exam: alert, oriented x 3, cooperative, normal mood/affect, nml cerebellar function, nml station & gait, sensation nml, No motor deficits Eye Exam: PERRL/EOMI, eyes nml inspection Ears, Nose, Throat Exam: normal ENT inspection, TMs normal, pharynx normal, moist mucous membranes Neck Exam: normal inspection, non-tender, supple, full range of motion Respiratory Exam: normal breath sounds, lungs clear, No respiratory distress Cardiovascular Exam: regular rate/rhythm, normal heart sounds, normal peripheral pulses Gastrointestinal/Abdomen Exam: soft, tenderness, No mass, No guarding, No rebound Back Exam: normal inspection, normal range of motion, No CVA tenderness, No vertebral tenderness Extremity Exam: normal inspection, normal range of motion, pelvis stable Skin Exam: normal color, warm, dry, No rash Lymphatic Exam: No adenopathy Results - Labs Lab/Micro Results: Lab Results-Last 24 Hours 10/14/20 10/14/20 10/14/20 Range/Units 11:03 11:03 11:03 WBC 13.7 H (4.0-10.5) K/mm3 RBC 5.58 H (4.1-5.4) M/mm3 Hgb 16.4 H (12.0-16.0) gm/dl Hct 49.5 H (35-47) % MCV 88.7 (78-100) fl MCH 29.4 (26-32) pg MCHC 33.1 (32-36) g/dl RDW 15.1 H (11.5-14.0) % Plt Count 356 (150-450) K/mm3 MPV 10.0 (7.5-11.0) fl Segmented Neutrophils 78 H (36.0-66.0) % Lymphocytes (Manual) 22 L (24-44) % Platelet Estimate NORMAL (NORMAL) RBC Morphology NORMAL Sodium 136 L (137-145) mmol/L Potassium 3.4 L (3.5-5.1) mmol/L Chloride 95 L (98-107) mmol/L Carbon Dioxide 30 (22-30) mmol/L Anion Gap 13.3 (5-15) MEQ/L BUN 10 (7-17) mg/dL Creatinine 0.59 (0.52-1.04) mg/dL Estimated GFR > 60.0 ML/MIN Glucose 128 H (74-106) mg/dL Lactic Acid 2.4 H (0.4-2.0) Calcium 9.4 (8.4-10.2) mg/dL Total Bilirubin 0.40 (0.2-1.3) mg/dL AST 34 (14-36) U/L ALT 17 (0-35) U/L Alkaline Phosphatase 73 (38-126) U/L Serum Total Protein 7.6 (6.3-8.2) g/dL Albumin 4.3 (3.5-5.0) g/dL Amylase 44 (30-110) U/L Lipase 82 (23-300) U/L Urine Color (YELLOW) Urine Appearance (CLEAR) Urine pH (5-6) Ur Specific [place] (1.005-1.025) Urine Protein (Negative) Urine Ketones (NEGATIVE) Urine Blood (0-5) Pasquale/ul Urine Nitrite (NEGATIVE) Urine Bilirubin (NEGATIVE) Urine Urobilinogen (0-1) mg/dL Ur Leukocyte Esterase (NEGATIVE) Urine WBC (Auto) (0-5) /HPF Urine RBC (Auto) (0-2) /HPF U Epithel Cells (Auto) (FEW) /HPF Urine Bacteria (Auto) (NEGATIVE) /HPF Urine Mucus (Auto) (NEGATIVE) /HPF Urine Culture Reflexed (NO) Urine Glucose (NEGATIVE) mg/dL Influenza Type A Ag (NEGATIVE) Influenza Type B Ag (NEGATIVE) RSV (PCR) (Negative) SARS-CoV-2 (PCR) (NEGATIVE) 10/14/20 10/14/20 10/14/20 Range/Units 12:03 13:26 13:32 WBC (4.0-10.5) K/mm3 RBC (4.1-5.4) M/mm3 Hgb (12.0-16.0) gm/dl Hct (35-47) % MCV (78-100) fl MCH (26-32) pg MCHC (32-36) g/dl RDW (11.5-14.0) % Plt Count (150-450) K/mm3 MPV (7.5-11.0) fl Segmented Neutrophils (36.0-66.0) % Lymphocytes (Manual) (24-44) % Platelet Estimate (NORMAL) RBC Morphology Sodium (137-145) mmol/L Potassium (3.5-5.1) mmol/L Chloride (98-107) mmol/L Carbon Dioxide (22-30) mmol/L Anion Gap (5-15) MEQ/L BUN (7-17) mg/dL Creatinine (0.52-1.04) mg/dL Estimated GFR ML/MIN Glucose (74-106) mg/dL Lactic Acid 1.0 (0.4-2.0) Calcium (8.4-10.2) mg/dL Total Bilirubin (0.2-1.3) mg/dL AST (14-36) U/L ALT (0-35) U/L Alkaline Phosphatase (38-126) U/L Serum Total Protein (6.3-8.2) g/dL Albumin (3.5-5.0) g/dL Amylase (30-110) U/L Lipase (23-300) U/L Urine Color MANDI (YELLOW) Urine Appearance CLOUDY (CLEAR) Urine pH 9.0 (5-6) Ur Specific [place] 1.026 (1.005-1.025) Urine Protein >=500 (Negative) Urine Ketones NEGATIVE (NEGATIVE) Urine Blood MODERATE (0-5) Pasquale/ul Urine Nitrite NEGATIVE (NEGATIVE) Urine Bilirubin NEGATIVE (NEGATIVE) Urine Urobilinogen NEGATIVE (0-1) mg/dL Ur Leukocyte Esterase NEGATIVE (NEGATIVE) Urine WBC (Auto) 6-10 (0-5) /HPF Urine RBC (Auto) >101 (0-2) /HPF U Epithel Cells (Auto) RARE (FEW) /HPF Urine Bacteria (Auto) NONE (NEGATIVE) /HPF Urine Mucus (Auto) SLIGHT (NEGATIVE) /HPF Urine Culture Reflexed YES (NO) Urine Glucose NEGATIVE (NEGATIVE) mg/dL Influenza Type A Ag NEGATIVE (NEGATIVE) Influenza Type B Ag NEGATIVE (NEGATIVE) RSV (PCR) NEGATIVE (Negative) SARS-CoV-2 (PCR) NEGATIVE (NEGATIVE) - Radiology Impressions Radiology Exams & Impressions: Radiology Procedures Category Date Time Status ABDOMEN AND PELVIS W/0 CONTRAS [CT] Stat Exams 10/14/20 11:04 Completed Assessment/Plan (1) Small intestine obstruction Current Visit: Yes Status: Acute Assessment & Plan: Chief Complaint Diagnosis BOWEL OBSTRUCTION Allergies Allergy/AdvReac Type Severity Reaction Status Date / Time tramadol [From Ultram] Allergy Intermediate Hives Verified 10/14/20 14:54 ketorolac tromethamine AdvReac Mild Nausea Verified 10/14/20 14:54 [From Toradol] NSAIDS (Non-Steroidal AdvReac Mild Nausea Verified 10/14/20 14:54 Anti-Inflamma Vital Signs (Last 24 hours) Temp Pulse Resp BP Pulse Ox 10/14/20 14:45 98.1 F 71 16 142/92 96 10/14/20 14:25 58 L 16 125/85 95 10/14/20 13:13 71 16 141/70 98 10/14/20 13:06 97 10/14/20 12:04 56 L 16 160/84 93 L 10/14/20 11:41 60 16 167/75 98 10/14/20 10:52 97 H 22 166/65 97 Current Medications Generic Name Dose Route Start Last Admin Trade Name Freq PRN Reason Stop Dose Admin Acetaminophen 650 mg 10/14/20 14:45 Feverall 650 Mg CA 11/13/20 14:44 Q4H PRN PRN PAIN AND/OR FEVER Hydromorphone HCl 1 mg 10/14/20 14:45 10/14/20 17:10 Hydromorphone 1 Mg/Ml Injection IV 10/19/20 14:44 1 mg Q4H PRN PRN Administration PAIN Sodium Chloride 1,000 mls @ 100 mls/hr 10/14/20 14:45 10/14/20 15:38 Sodium Chloride 0.9% 1000 Ml IV 11/13/20 14:44 100 mls/hr .Q10H CATALINO Administration Ondansetron HCl 4 mg 10/14/20 14:45 10/14/20 15:41 Zofran 4 Mg/2 Ml Vial IV 11/13/20 14:44 4 mg Q6H PRN PRN Administration NAUSEA/VOMITING Discontinued Medications Generic Name Dose Route Start Last Admin Trade Name Freq PRN Reason Stop Dose Admin Hydromorphone HCl 1 mg 10/14/20 11:03 10/14/20 11:07 Hydromorphone 1 Mg/Ml Injection IV 10/14/20 11:04 1 mg STAT ONE Administration Hydromorphone HCl Confirm 10/14/20 11:04 Hydromorphone 1 Mg/Ml Injection Administered 10/14/20 11:05 Dose 1 mg .ROUTE .STK-MED ONE Hydromorphone HCl 1 mg 10/14/20 13:01 10/14/20 13:08 Hydromorphone 1 Mg/Ml Injection IV 10/14/20 13:02 1 mg STAT ONE Administration Hydromorphone HCl Confirm 10/14/20 13:06 Hydromorphone 1 Mg/Ml Injection Administered 10/14/20 13:07 Dose 1 mg .ROUTE .STK-MED ONE Sodium Chloride 1,000 mls @ 999 mls/hr 10/14/20 11:03 10/14/20 12:11 Sodium Chloride 0.9% 1000 Ml IV 10/14/20 12:03 Infused .Q1H1M STA Infusion Sodium Chloride Confirm 10/14/20 11:04 Sodium Chloride 0.9% 1000 Ml Administered 10/14/20 11:05 Dose 1,000 mls @ ud .ROUTE .STK-MED ONE Sodium Chloride 1,000 mls @ 999 mls/hr 10/14/20 12:16 10/14/20 13:23 Sodium Chloride 0.9% 1000 Ml IV 10/14/20 13:16 Infused .Q1H1M STA Infusion Sodium Chloride Confirm 10/14/20 12:18 Sodium Chloride 0.9% 1000 Ml Administered 10/14/20 12:19 Dose 1,000 mls @ ud .ROUTE .STK-MED ONE Ondansetron HCl 4 mg 10/14/20 11:03 10/14/20 11:07 Zofran 4 Mg/2 Ml Vial IV 10/14/20 11:04 4 mg STAT ONE Administration Ondansetron HCl Confirm 10/14/20 11:04 Zofran 4 Mg/2 Ml Vial Administered 10/14/20 11:05 Dose 4 mg .ROUTE .STK-MED ONE Ondansetron HCl 4 mg 10/14/20 12:55 10/14/20 12:59 Zofran 4 Mg/2 Ml Vial IV 10/14/20 12:56 4 mg STAT ONE Administration Ondansetron HCl Confirm 10/14/20 12:58 Zofran 4 Mg/2 Ml Vial Administered 10/14/20 12:59 Dose 4 mg .ROUTE .STK-MED ONE Pantoprazole Sodium 40 mg 10/14/20 11:03 10/14/20 11:09 Protonix 40 Mg Iv IV 10/14/20 11:04 40 mg STAT ONE Administration Pantoprazole Sodium Confirm 10/14/20 11:08 Protonix 40 Mg Iv Administered 10/14/20 11:09 Dose 40 mg IV .STK-MED ONE Intake & Output (Last 24 hours) 10/12/20 10/13/20 10/14/20 10/15/20 11:59 11:59 11:59 11:59 Intake Total 0 Balance 0 Weight 86.183 kg 92.6 kg Microbiology Results (Last 24 hours) 10/14/20 12:03 Clean Catch Midstream Urine Culture - Pending Laboratory Results (Last 24 hours) 10/14/20 10/14/20 10/14/20 13:32 13:26 12:03 WBC RBC Hgb Hct MCV MCH MCHC RDW Plt Count MPV Segmented Neutrophils Lymphocytes (Manual) Platelet Estimate RBC Morphology Sodium Potassium Chloride Carbon Dioxide Anion Gap BUN Creatinine Estimated GFR Glucose Lactic Acid 1.0 Calcium Total Bilirubin AST ALT Alkaline Phosphatase Serum Total Protein Albumin Amylase Lipase Urine Color MANDI Urine Appearance CLOUDY Urine pH 9.0 Ur Specific [place] 1.026 Urine Protein >=500 Urine Ketones NEGATIVE Urine Blood MODERATE Urine Nitrite NEGATIVE Urine Bilirubin NEGATIVE Urine Urobilinogen NEGATIVE Ur Leukocyte Esterase NEGATIVE Urine WBC (Auto) 6-10 Urine RBC (Auto) >101 U Epithel Cells (Auto) RARE Urine Bacteria (Auto) NONE Urine Mucus (Auto) SLIGHT Urine Culture Reflexed YES Urine Glucose NEGATIVE Influenza Type A Ag NEGATIVE Influenza Type B Ag NEGATIVE RSV (PCR) NEGATIVE SARS-CoV-2 (PCR) NEGATIVE 10/14/20 10/14/20 10/14/20 11:03 11:03 11:03 WBC 13.7 H RBC 5.58 H Hgb 16.4 H Hct 49.5 H MCV 88.7 MCH 29.4 MCHC 33.1 RDW 15.1 H Plt Count 356 MPV 10.0 Segmented Neutrophils 78 H Lymphocytes (Manual) 22 L Platelet Estimate NORMAL RBC Morphology NORMAL Sodium 136 L Potassium 3.4 L Chloride 95 L Carbon Dioxide 30 Anion Gap 13.3 BUN 10 Creatinine 0.59 Estimated GFR > 60.0 Glucose 128 H Lactic Acid 2.4 H Calcium 9.4 Total Bilirubin 0.40 AST 34 ALT 17 Alkaline Phosphatase 73 Serum Total Protein 7.6 Albumin 4.3 Amylase 44 Lipase 82 Urine Color Urine Appearance Urine pH Ur Specific [place] Urine Protein Urine Ketones Urine Blood Urine Nitrite Urine Bilirubin Urine Urobilinogen Ur Leukocyte Esterase Urine WBC (Auto) Urine RBC (Auto) U Epithel Cells (Auto) Urine Bacteria (Auto) Urine Mucus (Auto) Urine Culture Reflexed Urine Glucose Influenza Type A Ag Influenza Type B Ag RSV (PCR) SARS-CoV-2 (PCR) Orders (Last 24 hours) Category Date Time Status Bedrest TOLERATED Activity 10/14/20 14:45 Active Admit as Inpatient ROUTINE Care 10/14/20 14:45 Active Code Status Order ROUTINE Care 10/14/20 14:45 Active IV Insertion STAT Care 10/14/20 11:03 Completed Weight,Daily 0600 Care 10/14/20 14:45 Active NPO Diet 10/14/20 14:45 Active ABDOMEN AND PELVIS W/0 CONTRAS [CT] Stat Exams 10/14/20 11:04 Completed AMYLASE Stat Lab 10/14/20 11:03 Completed CBC W DIFF AM.LAB Lab 10/15/20 04:00 Ordered CBC W DIFF Stat Lab 10/14/20 11:03 Completed CMP AM.LAB Lab 10/15/20 04:00 Ordered CMP Stat Lab 10/14/20 11:03 Completed CULTURE,URINE Stat Lab 10/14/20 12:03 Received LIPASE Stat Lab 10/14/20 11:03 Completed Lactic Acid Stat Lab 10/14/20 11:03 Completed Lactic Acid Stat Lab 10/14/20 13:26 Completed Manual Differential NC Stat Lab 10/14/20 11:03 Completed UA W/RFX UR CULTURE Stat Lab 10/14/20 12:03 Completed Acetaminophen 650 mg [Feverall 650 mg] Med 10/14/20 14:45 Active 650 mg CA Q4H PRN PRN Flu Vacc [id number](6Mos Up)/Pf [Fluzone Quad Med 10/15/20 10:00 Once Syringe] 60 mcg IM .ONCE ONE Hydromorphone 1 mg/1Ml Inj [Hydromorphone 1 mg/ml Med 10/14/20 11:04 Discontinued Injection] 1 mg .ROUTE .STK-MED ONE Hydromorphone 1 mg/1Ml Inj [Hydromorphone 1 mg/ml Med 10/14/20 13:06 Discontinued Injection] 1 mg .ROUTE .STK-MED ONE Hydromorphone 1 mg/1Ml Inj [Hydromorphone 1 mg/ml Med 10/14/20 14:45 Active Injection] 1 mg IV Q4H PRN PRN Hydromorphone 1 mg/1Ml Inj [Hydromorphone 1 mg/ml Med 10/14/20 11:03 Discontinued Injection] 1 mg IV STAT ONE Hydromorphone 1 mg/1Ml Inj [Hydromorphone 1 mg/ml Med 10/14/20 13:01 Discontinued Injection] 1 mg IV STAT ONE NaCl 0.9% 1000 ml [Sodium Chloride 0.9% 1000 ML] 1,000 Med 10/14/20 11:04 Discontinued ml .ROUTE UD NaCl 0.9% 1000 ml [Sodium Chloride 0.9% 1000 ML] 1,000 Med 10/14/20 12:18 Discontinued ml .ROUTE UD NaCl 0.9% 1000 ml [Sodium Chloride 0.9% 1000 ML] 1,000 Med 10/14/20 14:45 Active ml IV 100 mls/hr NaCl 0.9% 1000 ml [Sodium Chloride 0.9% 1000 ML] 1,000 Med 10/14/20 11:03 Discontinued ml IV 999 mls/hr NaCl 0.9% 1000 ml [Sodium Chloride 0.9% 1000 ML] 1,000 Med 10/14/20 12:16 Discontinued ml IV 999 mls/hr Ondansetron HCl 4 mg/2 ml [Zofran 4 MG/2 ML VIAL] Med 10/14/20 11:04 Discontinued 4 mg .ROUTE .STK-MED ONE Ondansetron HCl 4 mg/2 ml [Zofran 4 MG/2 ML VIAL] Med 10/14/20 12:58 Discontinued 4 mg .ROUTE .STK-MED ONE Ondansetron HCl 4 mg/2 ml [Zofran 4 MG/2 ML VIAL] Med 10/14/20 14:45 Active 4 mg IV Q6H PRN PRN Ondansetron HCl 4 mg/2 ml [Zofran 4 MG/2 ML VIAL] Med 10/14/20 11:03 Discontinued 4 mg IV STAT ONE Ondansetron HCl 4 mg/2 ml [Zofran 4 MG/2 ML VIAL] Med 10/14/20 12:55 Discontinued 4 mg IV STAT ONE Pantoprazole 40 mg [Protonix 40 mg IV] Med 10/14/20 11:08 Discontinued 40 mg IV .STK-MED ONE Pantoprazole 40 mg [Protonix 40 mg IV] Med 10/14/20 11:03 Discontinued 40 mg IV STAT ONE Pulse Oximetry ROUTINE RT 10/14/20 14:45 Active Transfer Order Routine Transfer 10/14/20 Completed Patient Care Notes (Last 24 hours) 0 Code(s): K56.609 - UNSP INTESTNL OBST, UNSP TO PARTIAL VERSUS COMPLETE OBST
[2020-10-14] MEDS: Phenergan 25 MG INJ IV PRN (20:50)
[2020-10-15] MEDS: Sodium Chloride 0.9% 1000 ML 1,000 ML IV SCH ×2 (01:39→13:17)
[2020-10-15] MEDS: Hydromorphone 1 mg/ml Injection IV PRN ×5 (01:39→23:20)
[2020-10-15] MEDS: Phenergan 25 MG INJ IV PRN ×3 (04:09→18:15)
[2020-10-15 05:19] LABS: Hematocrit 41.5 % (35-47); Hemoglobin 13.2 gm/dl (12.0-16.0); Mean Corpuscular Hemoglobin 28.9 pg (26-32); Mean Corpuscular Hgb Concent. 31.8 g/dl (32-36); Mean Platelet Volume 9.7 fl (7.5-11.0); Platelet Count 342 K/mm3 (150-450); Red Blood Count 4.56 M/mm3 (4.1-5.4); Red Cell Distribution Width 15.2 % (11.5-14.0); White Blood Count 10.5 K/mm3 (4.0-10.5)
[2020-10-15 05:26] LABS: ALBUMIN 3.2 g/dL (3.5-5.0); ALKALINE PHOSPHATASE 49 U/L (38-126); ANION GAP 7.4 MEQ/L (5-15); BLOOD UREA NITROGEN 6 mg/dL (7-17); CHLORIDE 102 mmol/L (98-107); Calcium 7.7 mg/dL (8.4-10.2); Carbon Dioxide 29 mmol/L (22-30); Creatinine 1 0.61 mg/dL (0.52-1.04); EST GLOMERULAR FILTRATION RATE > 60.0 ML/MIN; Glucose 94 mg/dL (74-106); Potassium 3.2 mmol/L (3.5-5.1); SGOT/AST 20 U/L (14-36); SGPT/ALT 11 U/L (0-35); SODIUM 136 mmol/L (137-145); Total Protein 5.8 g/dL (6.3-8.2)
[2020-10-15 08:42] LABS: Lymphocytes 29 % (24-44); Monocyte 3 % (0.0-12.0); Neutrophils 68 % (36.0-66.0); Platelet Estimate NORMAL (NORMAL); Total Cells Counted 100
[2020-10-15] MEDS ORDERED: FLUZONE QUAD 2020-2021 SYRINGE IM ONE (10:00)
--- NOTE | 2020-10-15 13:24 | CONS ---
CONSULT DATE: 10/15/2020 REASON FOR CONSULT: Small bowel obstruction. HISTORY: The patient is familiar to ourselves. She was seen by Dr. Ochoa about 12 months ago. She had a fairly similar episode. She had mid central abdominal pain. It came on fairly suddenly. No diarrhea. She did have nausea and vomiting. She could not keep anything down. This episode is very similar to what she had 12-13 months ago. She has had multiple ventral hernias. She has had bowel obstruction before. She does have a midline curving a little bit to the right around the umbilicus incision for repair here has been performed openly in the past. She also has multiple punch holes. She still has the gallbladder in place. She has been told that she does not have an appendix, at least she was told that last time by Dr. Ochoa. Her CT scan is reviewed, very nonspecific gas pattern, very nonspecific finding. She is feeling a little better. She just started to pass a little bit of gas. She is not aware of having any major viral syndromes. She has not eaten, had any unusual food intake. Nobody in her family is sick. She thought she had coronavirus fairly early even before it was recognized as coronavirus. She did not think she had anything viral here just recently. She does look like she is doing a little better. She is complicated. I think she will benefit from a small bowel follow through. We are obtaining the small bowel follow through tomorrow morning.
--- NOTE | 2020-10-15 15:47 | XRAY ---
Exam: CT of the abdomen and pelvis with IV contrast from 10/15/2020. Total DLP: 1266.87 mGy-cm Comparison: CT of the abdomen and pelvis without IV contrast from 10/14/2020. Indication: History of obstruction. Also, history of prior tubal ligation, left oophorectomy, and appendectomy. Technique: Post-IV contrast axial images were obtained through the abdomen and pelvis during automated injection of 80 cc of [id number] contrast material. Oral contrast was given as well. Reconstructed coronal and sagittal images were created and reviewed. Findings: The visualized lung bases reveals interval development of posterior bibasilar atelectatic changes as compared to yesterday's CT. In addition, I again detect some prominence of the interstitial markings consistent with scarring as well as cystic changes within both lung bases, right greater than left. This appears unchanged dating back to 10/12/2019. Correlate clinically. I again see a small retrocardiac hiatal hernia. The liver is of normal size and reveals no focal hepatic mass or intrahepatic biliary duct distention. The gallbladder is distended and reveals no dense calcifications within it. The spleen is of unremarkable size and remarkable only for a few tiny calcified granulomas. No splenic mass is seen. The pancreas and adrenal glands appear unremarkable. Both kidneys are of normal size and shape. No renal calculi or hydronephrosis is seen. Both kidneys function on delay images. No solid renal mass is seen. The abdominal aorta appears of normal diameter without abdominal aortic aneurysm. No abnormal retroperitoneal lymphadenopathy is seen. There is no free intraperitoneal air. I note a small fat-containing upper abdominal midline hernia which in retrospect represents no change. For example, see sagittal image #114 of series 2. I also note some changes within the anterior abdominal wall at the level of the umbilicus which may be due to prior umbilical hernia repair. Correlate with surgical history. The stomach and small bowel appear unremarkable. There is no evidence of bowel obstruction or bowel wall thickening. Some scattered small colonic diverticula are seen this is unchanged. No evidence of diverticulitis is seen. I'm given a history of prior appendectomy. No pericecal inflammatory changes are seen within the right lower quadrant. The uterus appears retroflexed. The right ovary is remarkable for a 2.5 cm in diameter cyst. The left ovary is surgically absent. The urinary bladder is mildly distended and appears unremarkable. I see no other evidence of pelvic mass, abnormal pelvic lymphadenopathy, or free intraperitoneal fluid. The skeleton reveals no fracture or other aggressive bone lesion. Small vertebral endplate spurs are seen within the lower thoracic spine. Impression: 1. There is interval development of bilateral discoid atelectasis within both posterior lung bases. In addition, I again see scattered fibrotic scarring as well as cystic changes within both lung bases, right greater than left. These latter findings are unchanged. Correlate clinically. 2. I see no evidence of bowel obstruction or bowel wall thickening. Minimal colonic diverticulosis without evidence of diverticulitis is again seen. 3. In addition, I see a subtle fat-containing ventral hernia within the upper abdomen midline which in retrospect is unchanged. There are changes within the periumbilical region which may be due to prior umbilical hernia repair in the past. Correlate clinically with surgical history. 4. The left ovary is surgically absent. The right ovary is remarkable for a 2.5 cm cyst, best seen on the sagittal images. The uterus is retroflexed. 5. The appendix is surgically absent. 6. Small hiatal hernia is again seen.
--- NOTE | 2020-10-15 21:39 | PCM.NOTE ---
Date and Time: 10/15/202137 Subjective Assessment: doing better - Review of Systems Constitutional: No Fever, No Chills Eyes: No Symptoms Ears, Nose, & Throat: No Symptoms Respiratory: No Cough, No Short Of Breath Cardiac: No Chest Pain, No Edema, No Syncope Abdominal/Gastrointestinal: Abdominal Pain, No Nausea, No Vomiting, No Diarrhea Genitourinary Symptoms: No Dysuria Musculoskeletal: No Back Pain, No Neck Pain Skin: No Rash Neurological: No Dizziness, No Focal Weakness, No Sensory Changes Psychological: No Symptoms Endocrine: No Symptoms Hematologic/Lymphatic: No Symptoms Immunological/Allergic: No Symptoms Objective Exam General Appearance: no apparent distress, alert Neurologic Exam: alert, oriented x 3, cooperative, normal mood/affect, nml cerebellar function, sensation nml, No motor deficits Skin Exam: normal color, warm, dry Eye Exam: PERRL, EOMI, eyes nml inspection Ears, Nose, Throat Exam: normal ENT inspection, pharynx normal, moist mucous membranes Neck Exam: normal inspection, non-tender, supple, full range of motion Respiratory Exam: normal breath sounds, lungs clear, No respiratory distress Cardiovascular Exam: regular rate/rhythm, normal heart sounds Gastrointestinal/Abdomen Exam: soft, No tenderness, No mass Extremity Exam: normal inspection, normal range of motion Back Exam: normal inspection, normal range of motion, No CVA tenderness, No vertebral tenderness Pelvic Exam: deferred Rectal Exam: deferred OBJECTIVE DATA Vital Signs: Vital Signs - 24 hr Temp Pulse Resp BP Pulse Ox 10/15/20 20:00 98.1 F 80 20 145/79 97 10/15/20 16:00 98.3 F 68 16 110/58 95 10/15/20 12:00 97.2 F 66 16 139/71 98 10/15/20 07:31 98.1 F 55 L 16 133/62 96 10/15/20 03:59 98.1 F 71 18 112/62 92 L 10/14/20 23:49 98.1 F 66 19 107/57 94 L Pain Assessment - Last Documented Pain Intensity 5 Pain Scale Used 0-10 Pain Scale Intake and Output: Intake & Output 10/13/20 10/14/20 10/15/20 10/16/20 11:59 11:59 11:59 11:59 Intake Total 2317 0 Balance 2317 0 Weight 86.183 kg 93.5 kg Lab Results: Lab Results-Last 24 Hours 10/15/20 10/15/20 Range/Units 04:58 04:58 WBC 10.5 (4.0-10.5) K/mm3 RBC 4.56 (4.1-5.4) M/mm3 Hgb 13.2 (12.0-16.0) gm/dl Hct 41.5 (35-47) % MCV 91.0 (78-100) fl MCH 28.9 (26-32) pg MCHC 31.8 L (32-36) g/dl RDW 15.2 H (11.5-14.0) % Plt Count 342 (150-450) K/mm3 MPV 9.7 (7.5-11.0) fl Segmented Neutrophils 68 H (36.0-66.0) % Lymphocytes (Manual) 29 (24-44) % Monocytes (Manual) 3 (0.0-12.0) % Platelet Estimate NORMAL (NORMAL) RBC Morphology NORMAL Sodium 136 L (137-145) mmol/L Potassium 3.2 L (3.5-5.1) mmol/L Chloride 102 (98-107) mmol/L Carbon Dioxide 29 (22-30) mmol/L Anion Gap 7.4 (5-15) MEQ/L BUN 6 L (7-17) mg/dL Creatinine 0.61 (0.52-1.04) mg/dL Estimated GFR > 60.0 ML/MIN Glucose 94 (74-106) mg/dL Calcium 7.7 L D (8.4-10.2) mg/dL Total Bilirubin 0.40 (0.2-1.3) mg/dL AST 20 (14-36) U/L ALT 11 (0-35) U/L Alkaline Phosphatase 49 (38-126) U/L Serum Total Protein 5.8 L (6.3-8.2) g/dL Albumin 3.2 L (3.5-5.0) g/dL Radiology Exams: Radiology Procedures Category Date Time Status ABDOMEN AND PELVIS W CONTRAST [CT] Urgent Exams 10/15/20 09:04 Completed ABDOMEN AND PELVIS W/0 CONTRAS [CT] Stat Exams 10/14/20 11:04 Completed SMALL BOWEL SERIES Routine Exams 10/16/20 Ordered Multi-Disciplinary Progress Notes: Multi-Disciplinary Progress Notes 10/15/20 09:05 (created 10/15/20 12:21) Case Management Note by Phyllis Martinez PER OCEAN EXPORT AGENT, MEDARDO YE RN, DR. WHITE ROUNDED AND EVALUATED, PLANS TO CONTINUE CURRENT TREATMENT AT THIS TIME. ALSO NEW ORDER TO HAVE A CT ABD/PELVIS WITH CONTRAST. PT STILL WITH SIGNIFICANT ABD PAIN, N/V. Initialized on 10/15/20 12:21 - END OF NOTE Assessment/Plan (1) Small intestine obstruction Current Visit: Yes Status: Acute Assessment & Plan: Chief Complaint Diagnosis abdominal pain for 1 day Allergies Allergy/AdvReac Type Severity Reaction Status Date / Time tramadol [From Ultram] Allergy Intermediate Hives Verified 10/14/20 14:54 ketorolac tromethamine AdvReac Mild Nausea Verified 10/14/20 14:54 [From Toradol] NSAIDS (Non-Steroidal AdvReac Mild Nausea Verified 10/14/20 14:54 Anti-Inflamma Vital Signs (Last 24 hours) Temp Pulse Resp BP Pulse Ox 10/15/20 20:00 98.1 F 80 20 145/79 97 10/15/20 16:00 98.3 F 68 16 110/58 95 10/15/20 12:00 97.2 F 66 16 139/71 98 10/15/20 07:31 98.1 F 55 L 16 133/62 96 10/15/20 03:59 98.1 F 71 18 112/62 92 L 10/14/20 23:49 98.1 F 66 19 107/57 94 L Current Medications Generic Name Dose Route Start Last Admin Trade Name Freq PRN Reason Stop Dose Admin Acetaminophen 650 mg 10/14/20 14:45 Feverall 650 Mg SC 11/13/20 14:44 Q4H PRN PRN PAIN AND/OR FEVER Hydromorphone HCl 1 mg 10/14/20 14:45 10/15/20 14:28 Hydromorphone 1 Mg/Ml Injection IV 10/19/20 14:44 1 mg Q4H PRN PRN Administration PAIN Sodium Chloride 1,000 mls @ 100 mls/hr 10/14/20 14:45 10/15/20 13:17 Sodium Chloride 0.9% 1000 Ml IV 11/13/20 14:44 100 mls/hr .Q10H CATALINO Administration Promethazine HCl 25 mg 10/14/20 20:34 10/15/20 18:15 Phenergan 25 Mg Inj IV 11/13/20 20:33 25 mg Q6H PRN PRN Administration NAUSEA/VOMITING Discontinued Medications Generic Name Dose Route Start Last Admin Trade Name Freq PRN Reason Stop Dose Admin Hydromorphone HCl 1 mg 10/14/20 11:03 10/14/20 11:07 Hydromorphone 1 Mg/Ml Injection IV 10/14/20 11:04 1 mg STAT ONE Administration Hydromorphone HCl Confirm 10/14/20 11:04 Hydromorphone 1 Mg/Ml Injection Administered 10/14/20 11:05 Dose 1 mg .ROUTE .STK-MED ONE Hydromorphone HCl 1 mg 10/14/20 13:01 10/14/20 13:08 Hydromorphone 1 Mg/Ml Injection IV 10/14/20 13:02 1 mg STAT ONE Administration Hydromorphone HCl Confirm 10/14/20 13:06 Hydromorphone 1 Mg/Ml Injection Administered 10/14/20 13:07 Dose 1 mg .ROUTE .STK-MED ONE Sodium Chloride 1,000 mls @ 999 mls/hr 10/14/20 11:03 10/14/20 12:11 Sodium Chloride 0.9% 1000 Ml IV 10/14/20 12:03 Infused .Q1H1M STA Infusion Sodium Chloride Confirm 10/14/20 11:04 Sodium Chloride 0.9% 1000 Ml Administered 10/14/20 11:05 Dose 1,000 mls @ ud .ROUTE .STK-MED ONE Sodium Chloride 1,000 mls @ 999 mls/hr 10/14/20 12:16 10/14/20 13:23 Sodium Chloride 0.9% 1000 Ml IV 10/14/20 13:16 Infused .Q1H1M STA Infusion Sodium Chloride Confirm 10/14/20 12:18 Sodium Chloride 0.9% 1000 Ml Administered 10/14/20 12:19 Dose 1,000 mls @ ud .ROUTE .STK-MED ONE Ondansetron HCl 4 mg 10/14/20 11:03 10/14/20 11:07 Zofran 4 Mg/2 Ml Vial IV 10/14/20 11:04 4 mg STAT ONE Administration Ondansetron HCl Confirm 10/14/20 11:04 Zofran 4 Mg/2 Ml Vial Administered 10/14/20 11:05 Dose 4 mg .ROUTE .STK-MED ONE Ondansetron HCl 4 mg 10/14/20 12:55 10/14/20 12:59 Zofran 4 Mg/2 Ml Vial IV 10/14/20 12:56 4 mg STAT ONE Administration Ondansetron HCl Confirm 10/14/20 12:58 Zofran 4 Mg/2 Ml Vial Administered 10/14/20 12:59 Dose 4 mg .ROUTE .STK-MED ONE Ondansetron HCl 4 mg 10/14/20 14:45 10/14/20 15:41 Zofran 4 Mg/2 Ml Vial IV 11/13/20 14:44 4 mg Q6H PRN PRN Administration NAUSEA/VOMITING Pantoprazole Sodium 40 mg 10/14/20 11:03 10/14/20 11:09 Protonix 40 Mg Iv IV 10/14/20 11:04 40 mg STAT ONE Administration Pantoprazole Sodium Confirm 10/14/20 11:08 Protonix 40 Mg Iv Administered 10/14/20 11:09 Dose 40 mg IV .STK-MED ONE Intake & Output (Last 24 hours) 10/13/20 10/14/20 10/15/20 10/16/20 11:59 11:59 11:59 11:59 Intake Total 2317 0 Balance 2317 0 Weight 86.183 kg 93.5 kg Microbiology Results (Last 24 hours) 10/14/20 12:03 Clean Catch Midstream Urine Culture - Preliminary NO GROWTH TO DATE Laboratory Results (Last 24 hours) 10/15/20 10/15/20 04:58 04:58 WBC 10.5 RBC 4.56 Hgb 13.2 Hct 41.5 MCV 91.0 MCH 28.9 MCHC 31.8 L RDW 15.2 H Plt Count 342 MPV 9.7 Segmented Neutrophils 68 H Lymphocytes (Manual) 29 Monocytes (Manual) 3 Platelet Estimate NORMAL RBC Morphology NORMAL Sodium 136 L Potassium 3.2 L Chloride 102 Carbon Dioxide 29 Anion Gap 7.4 BUN 6 L Creatinine 0.61 Estimated GFR > 60.0 Glucose 94 Calcium 7.7 L D Total Bilirubin 0.40 AST 20 ALT 11 Alkaline Phosphatase 49 Serum Total Protein 5.8 L Albumin 3.2 L Orders (Last 24 hours) Category Date Time Status ABDOMEN AND PELVIS W CONTRAST [CT] Urgent Exams 10/15/20 09:04 Completed SMALL BOWEL SERIES Routine Exams 10/16/20 Ordered CBC W DIFF AM.LAB Lab 10/15/20 04:58 Completed CMP AM.LAB Lab 10/15/20 04:58 Completed Manual Differential NC Routine Lab 10/15/20 04:58 Completed Flu Vacc [id number](6Mos Up)/Pf [Fluzone Quad Med 10/15/20 10:00 Discontinued Syringe] 60 mcg IM .ONCE ONE Patient Care Notes (Last 24 hours) 10/15/20 12:40 (created 10/15/20 13:36) Nursing Note by Linda Hammonds came to see patient with QUILL CLEANING MACHINE OPERATOR. Initialized on 10/15/20 13:36 - END OF NOTE 10/15/20 09:05 (created 10/15/20 12:21) Case Management Note by Phyllis Martinez PER OCEAN EXPORT AGENT, MEDARDO YE, RN, DR. WHITE ROUNDED AND EVALUATED, PLANS TO CONTINUE CURRENT TREATMENT AT THIS TIME. ALSO NEW ORDER TO HAVE A CT ABD/PELVIS WITH CONTRAST. PT STILL WITH SIGNIFICANT ABD PAIN, N/V. Initialized on 10/15/20 12:21 - END OF NOTE 10/15/20 08:14 Nursing Note by Linda Hammonds I spoke to Surgery department and to 's office about consult.He will see patient today and wants SBFT called to him. Addendum entered by Linda Hammonds 10/15/20 08:23: no SBFT wasnt ordered it was cat scan of abd and pelvis Initialized on 10/15/20 08:14 - END OF NOTE 10/15/20 06:33 Nursing Note by Adeline Cohn pt abd measured at begining of shift, pt felt that it was distended, measured from vangie on left to vangie on rt 72cm, measured again at 0630 measured 69cm. Initialized on 10/15/20 06:33 - END OF NOTE Code(s): K56.609 - UNSP INTESTNL OBST, UNSP TO PARTIAL VERSUS COMPLETE OBST
[2020-10-16] MEDS: Phenergan 25 MG INJ IV PRN ×3 (02:51→18:13)
[2020-10-16] MEDS: Sodium Chloride 0.9% 1000 ML 1,000 ML IV SCH ×2 (02:51→13:59)
[2020-10-16] MEDS: Hydromorphone 1 mg/ml Injection IV PRN ×4 (03:50→16:47)
--- NOTE | 2020-10-16 09:33 | XRAY ---
Exam: AP supine film of the abdomen from 10/16/2020. Comparison: CT of the abdomen and pelvis with IV and oral contrast from 10/15/2020. Indication: Preliminary shoer film for fluoroscopic small bowel exam. The patient complains of vomiting and abdominal pain; possible partial small bowel obstruction. Findings: 2 AP supine views of the abdomen were obtained. Unfortunately, there is mild to moderate retained CT oral contrast throughout the colon from yesterday's CT study. Diverticulosis is evident within the splenic flexure, descending colon, and sigmoid colon. The remainder of the bowel gas pattern appears unremarkable. The stomach is not distended. No hepatosplenomegaly is seen. No suspicious abdominal calcifications are seen. There are couple small calcifications within the lower right hemipelvis which represent phleboliths on yesterday's CT. Inferior to L5, there is a transitional vertebra with partial sacralization on the left. This represents a developmental/congenital variant. Some degenerative changes are seen at the level of symphysis pubis with a prominent spur directed superiorly just to the right of midline. This is unchanged dating back to plain abdomen films from 01/12/2014. Impression: 1. A mild to moderate amount of retained CT oral contrast is noted throughout the colon. Diverticulosis within the left hemicolon is again seen, as described above. 2. The small bowel follow-through was canceled for today to allow complete evacuation of the CT oral contrast from the colon. I personally notified Dr. Bingham of this during the morning of 10/16/2020. Also, chief ultrasound technologist, Bryon Escobar, also spoke with the patient's floor nurse concerning this.
[2020-10-16 19:29] VITALS: BP 176/79; PULSE 68; O2SAT 97
[2020-10-16] MEDS ORDERED: TYLENOL EXTRA STRENGTH 500 MG PO PRN (19:31)
[2020-10-16] MEDS ORDERED: TYLENOL EXTRA STRENGTH 500 MG ONE (19:39)
--- NOTE | 2020-10-17 07:49 | PCM.DS ---
Discharge Summary Date of Admission: 10/14/20 14:44 Admitting Physician: KRISTI WHITE Consults: Consults on Case 10/14/20 20:35 Consult Surgery ROUTINE Primary Care Provider: KRISTI WHITE Allergies Allergies tramadol [From Ultram] Allergy (Intermediate, Verified 10/14/20 14:54) Hives Vomiting ketorolac tromethamine [From Toradol] Adverse Reaction (Mild, Verified 10/14/20 14:54) Nausea NSAIDS (Non-Steroidal Anti-Inflamma Adverse Reaction (Mild, Verified 10/14/20 14:54) Nausea Hospital Summary - Hospital Course Hospital Course: Chief Complaint Diagnosis abdominal pain for 1 day Allergies Allergy/AdvReac Type Severity Reaction Status Date / Time tramadol [From Ultram] Allergy Intermediate Hives Verified 10/14/20 14:54 ketorolac tromethamine AdvReac Mild Nausea Verified 10/14/20 14:54 [From Toradol] NSAIDS (Non-Steroidal AdvReac Mild Nausea Verified 10/14/20 14:54 Anti-Inflamma Vital Signs (Last 24 hours) Temp Pulse Resp BP Pulse Ox 10/16/20 19:00 98.2 F 68 20 176/79 97 10/16/20 15:00 97.1 F 58 L 18 149/72 95 10/16/20 11:35 97.6 F 63 18 186/85 98 Current Medications Discontinued Medications Generic Name Dose Route Start Last Admin Trade Name Freq PRN Reason Stop Dose Admin Acetaminophen 650 mg 10/14/20 14:45 Feverall 650 Mg [place] 11/13/20 14:44 Q4H PRN PRN PAIN AND/OR FEVER Acetaminophen 500 mg 10/16/20 19:31 Tylenol Extra Strength 500 Mg PO 11/15/20 19:30 Q6H PRN PAIN Acetaminophen Confirm 10/16/20 19:39 Tylenol Extra Strength 500 Mg Administered 10/16/20 19:40 Dose 500 mg .ROUTE .STK-MED ONE Hydromorphone HCl 1 mg 10/14/20 11:03 10/14/20 11:07 Hydromorphone 1 Mg/Ml Injection IV 10/14/20 11:04 1 mg STAT ONE Administration Hydromorphone HCl Confirm 10/14/20 11:04 Hydromorphone 1 Mg/Ml Injection Administered 10/14/20 11:05 Dose 1 mg .ROUTE .STK-MED ONE Hydromorphone HCl 1 mg 10/14/20 13:01 10/14/20 13:08 Hydromorphone 1 Mg/Ml Injection IV 10/14/20 13:02 1 mg STAT ONE Administration Hydromorphone HCl Confirm 10/14/20 13:06 Hydromorphone 1 Mg/Ml Injection Administered 10/14/20 13:07 Dose 1 mg .ROUTE .STK-MED ONE Hydromorphone HCl 1 mg 10/14/20 14:45 10/16/20 16:47 Hydromorphone 1 Mg/Ml Injection IV 10/19/20 14:44 1 mg Q4H PRN PRN Administration PAIN Sodium Chloride 1,000 mls @ 999 mls/hr 10/14/20 11:03 10/14/20 12:11 Sodium Chloride 0.9% 1000 Ml IV 10/14/20 12:03 Infused .Q1H1M STA Infusion Sodium Chloride Confirm 10/14/20 11:04 Sodium Chloride 0.9% 1000 Ml Administered 10/14/20 11:05 Dose 1,000 mls @ ud .ROUTE .STK-MED ONE Sodium Chloride 1,000 mls @ 999 mls/hr 10/14/20 12:16 10/14/20 13:23 Sodium Chloride 0.9% 1000 Ml IV 10/14/20 13:16 Infused .Q1H1M STA Infusion Sodium Chloride Confirm 10/14/20 12:18 Sodium Chloride 0.9% 1000 Ml Administered 10/14/20 12:19 Dose 1,000 mls @ ud .ROUTE .STK-MED ONE Sodium Chloride 1,000 mls @ 100 mls/hr 10/14/20 14:45 10/16/20 13:59 Sodium Chloride 0.9% 1000 Ml IV 11/13/20 14:44 100 mls/hr .Q10H CATALINO Administration Ondansetron HCl 4 mg 10/14/20 11:03 10/14/20 11:07 Zofran 4 Mg/2 Ml Vial IV 10/14/20 11:04 4 mg STAT ONE Administration Ondansetron HCl Confirm 10/14/20 11:04 Zofran 4 Mg/2 Ml Vial Administered 10/14/20 11:05 Dose 4 mg .ROUTE .STK-MED ONE Ondansetron HCl 4 mg 10/14/20 12:55 10/14/20 12:59 Zofran 4 Mg/2 Ml Vial IV 10/14/20 12:56 4 mg STAT ONE Administration Ondansetron HCl Confirm 10/14/20 12:58 Zofran 4 Mg/2 Ml Vial Administered 10/14/20 12:59 Dose 4 mg .ROUTE .STK-MED ONE Ondansetron HCl 4 mg 10/14/20 14:45 10/14/20 15:41 Zofran 4 Mg/2 Ml Vial IV 11/13/20 14:44 4 mg Q6H PRN PRN Administration NAUSEA/VOMITING Pantoprazole Sodium 40 mg 10/14/20 11:03 10/14/20 11:09 Protonix 40 Mg Iv IV 10/14/20 11:04 40 mg STAT ONE Administration Pantoprazole Sodium Confirm 10/14/20 11:08 Protonix 40 Mg Iv Administered 10/14/20 11:09 Dose 40 mg IV .STK-MED ONE Promethazine HCl 25 mg 10/14/20 20:34 10/16/20 18:13 Phenergan 25 Mg Inj IV 11/13/20 20:33 25 mg Q6H PRN PRN Administration NAUSEA/VOMITING Intake & Output (Last 24 hours) 10/14/20 10/15/20 10/16/20 10/17/20 11:59 11:59 11:59 11:59 Intake Total 2317 1221 2557 Balance 2317 1221 2557 Weight 86.183 kg 93.5 kg 94.3 kg Microbiology Results (Last 24 hours) 10/14/20 12:03 Clean Catch Midstream Urine Culture - Final <10K NORMAL SKIN EDD PROBABLE SKIN CONTAMINANT Orders (Last 24 hours) Category Date Time Status AMA [Release AMA] OM.NOW Care 10/16/20 20:16 Active Clear Liquid Diet 10/16/20 Lunch Completed KUB Routine Exams 10/16/20 09:09 Completed Acetaminophen 500 mg [Tylenol Extra Strength 500 mg* Med 10/16/20 19:39 Discontinued ] 500 mg .ROUTE .STK-MED ONE Acetaminophen 500 mg [Tylenol Extra Strength 500 mg* Med 10/16/20 19:31 Discontinued ] 500 mg PO Q6H PRN Patient Care Notes (Last 24 hours) 10/16/20 20:19 Late Entry Note by Lily Koehler 1999 pt refused care assessments noted MD aware Initialized on 10/16/20 20:19 - END OF NOTE 10/16/20 20:15 Nursing Note by Lily Koehler piv in right ac disontinued at 2008, tip intact, gauze applied. 2009 pt signed ama paper and left agianst medical advise noted Addendum entered by Lily Koehler RN 10/16/20 22:35: pt left with all belongings including cell phone and wired sweatband cutter. Initialized on 10/16/20 20:15 - END OF NOTE 10/16/20 20:10 Nursing Note by Marlin Bonilla Pt's nurse informed this supervisor cloth winding that pt was wanting to leave AMA, due to the fact that the doctor had dc'd her IV pain medication and nausea medication. The patient was having a headache and elevated blood pressure. I went in to speak with the patient and she stated that she felt like she was not receiving adequate care. She stated this in not the first time she has had a bowel obstruction. She was visibly upset and tearful when talking with me. I asked her if there was anything I could do to change her observation of how she was being cared for. She stated no, that it was not my fault and she was not angry with me but upset with her doctor. I did explain to the patient that the pain medication she was on could have been causing her headache due to it being a narcotic and that was possibly why the doctor discontinued it. She still stated she wanted to leave AMA and she would go to another hospital. I notified her nurse that I had spoken with the patient and what her intentions were. Pt's nurse to have patient sign AMA form and dc her IV Initialized on 10/16/20 20:10 - END OF NOTE 10/16/20 19:52 Nursing Note by Lily Koehler informed pt of MD orders, Pt became upset stating she will: " [facility] " and states "I know I need these pain medications" , pt was educated on the side effects of the medications and the doctors recommendation that these meds be discontinued (phenergan and dilaudid). Pt stated "she will leave against medical advise" and "just go to another hospital". MD was made aware of this conversation and the patients adamant demands for medication and to leave ama. stated this all is fine, if it is the patients wishes she may leave, RN attempted to notify surgery MD tank wagon operator just to notify of the patients ama demands, answering service did not case picker or return call after 4 attempts to notify and paging service did not return call at this time noted, boiling house hand notified of all noted Initialized on 10/16/20 19:52 - END OF NOTE 10/16/20 19:33 Nursing Note by Lily Koehler reported BP 176/79 to MD along with pt c/o LOPEZ "all day", Dr. White gave orders to stop phenergan and dilaudid stating pt may be experiencing withdrawl symptoms, gave orders noted Initialized on 10/16/20 19:33 - END OF NOTE 10/16/20 13:09 Case Management Note by Caity Brown PATIENT CONTINUES TO DENY ANY NEEDS REGARDING DC AT THIS TIME. SHE PLANS TO RETURN HOME TO HER PRIOR LEVEL OF FUNCTIONING AT TIME OF DC Initialized on 10/16/20 13:09 - END OF NOTE 10/16/20 09:51 Nursing Note by Aniyah Ventura Spoke with Dr Gissel Sandhu re: unable to do SB follow through x-ray. Order received to start clear liq. Initialized on 10/16/20 09:51 - END OF NOTE Patient signed AMA - Vitals & Intake/Output Vital Signs: Vital Signs Temperature 98.2 F 10/16/20 19:00 Pulse Rate 68 10/16/20 19:00 Respiratory Rate 20 10/16/20 19:00 Blood Pressure 176/79 10/16/20 19:00 O2 Sat by Pulse Oximetry 97 10/16/20 19:00 Intake & Output: Intake & Output 10/14/20 10/15/20 10/16/20 10/17/20 11:59 11:59 11:59 11:59 Intake Total 2317 1221 2557 Balance 2317 1221 2557 Weight 86.183 kg 93.5 kg 94.3 kg - Lab Result Diagrams: 10/15/20 04:58 10/15/20 04:58 Micro Results-Entire Visit: Microbiology 10/14/20 12:03 Urine Culture - Final Clean Catch Midstream <10K NORMAL SKIN EDD PROBABLE SKIN CONTAMINANT - Radiology Exams Ordered Rad Exams-Entire Visit: Radiology Procedures Category Date Time Status ABDOMEN AND PELVIS W CONTRAST [CT] Urgent Exams 10/15/20 09:04 Completed KUB Routine Exams 10/16/20 09:09 Completed Discharge Exam General Appearance: no apparent distress, alert Neurologic Exam: alert, oriented x 3, cooperative, normal mood/affect, nml cerebellar function, sensation nml, No motor deficits Eye Exam: PERRL, EOMI, eyes nml inspection Ears, Nose, Throat Exam: normal ENT inspection, pharynx normal, moist mucous membranes Neck Exam: normal inspection, non-tender, supple, full range of motion Respiratory Exam: normal breath sounds, lungs clear, No respiratory distress Cardiovascular Exam: regular rate/rhythm, normal heart sounds Gastrointestinal/Abdomen Exam: soft, No tenderness, No mass Pelvic Exam: deferred Rectal Exam: deferred Back Exam: normal inspection, normal range of motion, No CVA tenderness, No vertebral tenderness Extremity Exam: normal inspection, normal range of motion Skin Exam: normal color, warm, dry Final Diagnosis/Problem List - Final Discharge Diagnosis/Problem (1) Small intestine obstruction Status: Resolved Code(s): K56.609 - UNSP INTESTNL OBST, UNSP TO PARTIAL VERSUS COMPLETE OBST - Discharge Discharge Date: 10/16/20 Disposition: Against Medical Advice Condition: Stable Prescriptions: No Action No Reportable Medications [No Reported Medications] Follow up with: KRISTI WHITE MD [Primary Care Provider] -
== END 2020-10-16 20:10 | disposition left against medical advice (07) | DRG 390 ==
LOC: ED 10:51 → MED SURG 14:44
PROVIDERS: ADMIT General Practice; ATTEND General Practice
DX: K56.609 Unspecified intestinal obstruction, unspecified as to partial versus complete obstruction (principal); R11.2 Nausea with vomiting, unspecified
CPT/HCPCS: 0241U; 36000; 36415; 74018; 74176; 74177; 80053; 81001; 82150; 83605; 83690; 85025; 87086; 90686; 96360; 96361; 96374; 96375; 96376; 99285; G0008; J1170; J2405; J2550; A9270-GY